=== PATIENT | female | born 1995 | race Caucasian/White ===

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

== ENCOUNTER 2017-08-01 20:26 | Inpatient (IN) | payer OTHER, MEDICAID ==
[2017-08-01] MEDS ORDERED: RINGERS SOLUTION,LACTATED 500 ML IV PRN (21:04)
[2017-08-01] MEDS ORDERED: ONDANSETRON HCL INJ/PF 4 MG/2 ML SDV ONE ×2 (21:09→22:26)
[2017-08-01 21:11] LABS: APPEARANCE,URINE CLEAR; BILIRUBIN,URINE NEGATIVE (NEGATIVE); COLOR,URINE STRAW; GLUCOSE, URINE NEGATIVE (NEGATIVE); KETONES,URINE NEGATIVE (NEGATIVE); LEUKOCYTE ESTERASE,URINE SMALL (NEGATIVE); NITRITE,URINE NEGATIVE (NEGATIVE); PROTEIN,URINE NEGATIVE (NEGATIVE); URINE SPECIFIC GRAVITY 1.003; UROBILINOGEN,URINE NEGATIVE mg/dL (<2.0)
[2017-08-01] MEDS: RINGERS SOLUTION,LACTATED 1,000 ML IV PRN ×2 (21:22→22:40)
[2017-08-01] MEDS: ONDANSETRON HCL INJ/PF 4 MG/2 ML SDV IV PRN (21:22)
[2017-08-01 21:29] LABS: URINE AMPHETAMINES SCREEN NEGATIVE; URINE BARBITURATES SCREEN NEGATIVE; URINE BENZODIAZEPINES SCREEN NEGATIVE; URINE COCAINE SCREEN NEGATIVE; URINE MARIJUANA (THC) SCREEN NEGATIVE; URINE METHADONE SCREEN NEGATIVE; URINE PHENCYCLIDINE SCREEN NEGATIVE
[2017-08-01] MEDS ORDERED: DEXTROSE 40% GEL 15 GM TUBE PO PRN ×2 (21:40)
[2017-08-01] MEDS ORDERED: DEXTROSE 50%-WATER 25 GM/50 ML DISP.SYRIN IV PRN ×2 (21:40)
[2017-08-01] MEDS ORDERED: GLUCAGON,HUMAN RECOMB 1 MG INJ SUBCUT PRN (21:40)
[2017-08-01] MEDS ORDERED: CITRIC ACID/SODIUM CITRATE ORAL SOLN 15 ML UDCUP PO ONE (21:40)
[2017-08-01] MEDS ORDERED: CITRIC ACID/SODIUM CITRATE ORAL SOLN 15 ML UDCUP ONE (21:41)
[2017-08-01 21:44] LABS: HEMATOCRIT 26.3 % (36.0-47.0); HEMOGLOBIN 8.8 g/dL (12.0-15.5); MEAN CORPUSCULAR HEMOGLOBIN 29.7 pg (27.0-33.4); MEAN CORPUSCULAR HGB CONC 33.7 g/dL (32.0-36.0); MEAN CORPUSCULAR VOLUME 88 fl (80-97); PLATELET COUNT 220 10^3/uL (150-450); RED BLOOD COUNT 2.97 10^6/uL (3.72-5.28); RED CELL DISTRIBUTION WIDTH 14.4 % (11.5-14.0); WHITE BLOOD COUNT 12.6 10^3/uL (4.0-10.5)
[2017-08-01 21:52] LABS: ALANINE AMINOTRANSFERASE 18 U/L (9-52); ALBUMIN 3.3 g/dL (3.5-5.0); ALKALINE PHOSPHATASE 130 U/L (38-126); AMYLASE 69 U/L (30-110); ANION GAP 10 (5-19); ASPARTATE AMINO TRANSFERASE 13 U/L (14-36); BILIRUBIN,DIRECT 0.1 mg/dL (0.0-0.4); BILIRUBIN,TOTAL 0.3 mg/dL (0.2-1.3); CALCIUM 10.4 mg/dL (8.4-10.2); CARBON DIOXIDE 21 mmol/L (22-30); CHLORIDE 107 mmol/L (98-107); GLUCOSE 83 mg/dL (75-110); LIPASE 41.1 U/L (23-300); SODIUM 137.8 mmol/L (137-145); TOTAL PROTEIN 5.9 g/dL (6.3-8.2)
[2017-08-01 21:55] LABS: BLOOD UREA NITROGEN < 2 mg/dL (7-20)
[2017-08-01 21:56] LABS: POTASSIUM 2.8 mmol/L (3.6-5.0); URIC ACID 4.9 mg/dL (2.5-6.2)
[2017-08-01] MEDS ORDERED: POTASSI CL 20 MEQ/50 ML RIDER 20 MEQ/50 ML RTUPB IV ONE (21:57)
[2017-08-01 22:11] LABS: UR PRO/CREAT RATIO RESULT 0.4 mg/mg (0.0-0.2); URINE CREATININE 58.4 mg/dL (16-327); URINE PROTEIN 21.2 mg/dL (<12)
[2017-08-01 22:18] LABS: ABSOLUTE LYMPHOCYTES# (MANUAL) 1.9 10^3/uL (0.5-4.7); ABSOLUTE MONOCYTES # (MANUAL) 0.5 10^3/uL (0.1-1.4); ABSOLUTE NEUTROPHILS# (MANUAL) 10.1 10^3/uL (1.7-8.2); BAND NEUTROPHILS % (MANUAL) 5 % (3-5); BASOPHILS % (MANUAL) 0 % (0-2); EOSINOPHILS % (MANUAL) 1 % (0-6); LYMPHOCYTES % (MANUAL) 15 % (13-45); MONOCYTES % (MANUAL) 4 % (3-13); SEGMENTED NEUTROPHILS % (MAN) 75 % (42-78); TOTAL CELLS COUNTED 100
[2017-08-01 22:20] LABS: ANISOCYTOSIS SLIGHT; PLATELET COMMENT ADEQUATE; POLYCHROMASIA SLIGHT
[2017-08-01] MEDS ORDERED: NALBUPHINE HCL INJ 10 MG/1 ML AMPULE INJ ONE (22:25)
[2017-08-01] MEDS ORDERED: ONDANSETRON HCL INJ/PF 4 MG/2 ML SDV IV ONE (22:25)
--- NOTE | 2017-08-01 22:40 | RADIOLOGY REPORT (SQ) ---
EXAM DESCRIPTION: U/S ABDOMEN COMPLETE W/DOPPLER COMPLETED DATE/TIME: 08/01/2017 10:16 pm REASON FOR STUDY: Left CVAT, Right flank, r/o sylvia/lakia as well COMPARISON: None. TECHNIQUE: Dynamic and static grayscale images acquired of the abdomen and recorded on PACS. Additio nal selected color Doppler and spectral images recorded. LIMITATIONS: Patient is 35 weeks , midline bowel gas FINDINGS: PANCREAS: Not well seen LIVER: No masses. Echotexture normal. LIVER VASCULATURE: Normal directional flow of the main portal vein and hepatic veins. GALLBLADDER: No stones. Normal wall thickness. No pericholecystic fluid. ULTRASOUND-DETECTED MOON'S SIGN: Negative. INTRAHEPATIC DUCTS AND COMMON DUCT: CBD and intrahepatic ducts normal caliber. No filling defects. INFERIOR VENA CAVA: Normal flow. AORTA: No aneurysm. RIGHT KIDNEY: Normal size. Normal echogenicity. No solid or suspicious masses. There is mild d ilatation of the right renal pelvis 1 cm in greatest AP diameter. This is within normal range for th e patient's gestational status. No intrarenal calcifications. LEFT KIDNEY: Normal size. Normal echogenicity. No solid or suspicious masses. No hydronephrosi s. No calcifications. SPLEEN: Normal size. No solid masses. PERITONEAL AND PLEURAL SPACES: No ascites or effusions. OTHER: No other significant finding. IMPRESSION: No gallstones, gallbladder wall thickening or pericholecystic fluid. Mild hydronephrosis of right kidney, within expected range for 35 weeks gestational age TECHNICAL DOCUMENTATION: JOB ID: [id number] [employer]- All Rights Reserved
[2017-08-01] MEDS ORDERED: CEFTRIAXONE INJ 1000 MG VIAL ONE (22:49)
[2017-08-01] MEDS ORDERED: CEFTRIAXONE 1 GM/D5W RTU 1 GM/50 ML RTUPB IV ONE (22:51)
[2017-08-01] MEDS ORDERED: NALBUPHINE HCL INJ 10 MG/1 ML AMPULE ONE (23:20)
[2017-08-01] MEDS ORDERED: CEFOXITIN INJ 1 GM VIAL ONE (23:29)
[2017-08-01] MEDS ORDERED: CEFOXITIN 1 GM/D5W RTU 1 GM/50 ML RTUPB IV ONE (23:30)
[2017-08-02] MEDS ORDERED: DIPHENHYDRAMINE HCL 50 MG/ML VIAL ONE ×2 (00:09→04:45)
[2017-08-02] MEDS ORDERED: POTASSI CL 20 MEQ/50 ML RIDER 20 MEQ/50 ML RTUPB IV ONE (00:59)
[2017-08-02] MEDS ORDERED: ACETAMINOPHEN WITH CODEINE #3 TABLET PO ONE (02:12)
[2017-08-02] MEDS ORDERED: ONDANSETRON HCL INJ/PF 4 MG/2 ML SDV ONE ×2 (02:16→07:22)
[2017-08-02] MEDS ORDERED: ACETAMINOPHEN WITH CODEINE #3 TABLET ONE ×3 (02:16→15:37)
[2017-08-02] MEDS: ONDANSETRON HCL INJ/PF 4 MG/2 ML SDV IV PRN (02:29)
[2017-08-02] MEDS ORDERED: METOPROLOL SUCCINATE 25 MG TAB.SR.24H PO ONE (02:42)
[2017-08-02] MEDS ORDERED: FENTANYL CITRATE INJ/PF 100 MCG/2 ML AMPUL IV ONE (03:44)
[2017-08-02] MEDS ORDERED: DIPHENHYDRAMINE HCL 50 MG/ML VIAL IV ONE ×2 (03:44)
[2017-08-02] MEDS ORDERED: FENTANYL CITRATE INJ/PF 100 MCG/2 ML AMPUL ONE (03:46)
[2017-08-02] MEDS ORDERED: CEFOXITIN 1 GM/D5W RTU 1 GM/50 ML RTUPB IV SCH ×3 (06:00→16:00)
[2017-08-02] MEDS ORDERED: ONDANSETRON HCL INJ/PF 4 MG/2 ML SDV IV PRN (07:30)
--- NOTE | 2017-08-02 08:06 | L&D Progress Notes ---
PROGRESS NOTES Datetime Report Generated by CPN: 08/02/2017 08:05 PROGRESS NOTE Informed Consent Obtained: Risks, Benefits and Alternatives Discussed Comment: In MRI, hsb in room, hsb discussing her pain last night and she had a hx of kidney stones and this does not feel like it VAGINAL EXAM Dilatation: 2 Effacement: 75 Station: -2 Contractions: none MEMBRANES Membranes: Intact FETUS A Presentation: Vertex SIGNATURE SIGNATURE: [id number] Assignment: Analilia Gomez MD Signature: with User ID: Ellis : with User ID: Ellis
[2017-08-02 08:07] LABS: HEMATOCRIT 22.4 % (36.0-47.0); MEAN CORPUSCULAR HEMOGLOBIN 29.9 pg (27.0-33.4); MEAN CORPUSCULAR HGB CONC 33.9 g/dL (32.0-36.0); MEAN CORPUSCULAR VOLUME 88 fl (80-97); PLATELET COUNT 203 10^3/uL (150-450); RED BLOOD COUNT 2.54 10^6/uL (3.72-5.28); RED CELL DISTRIBUTION WIDTH 14.1 % (11.5-14.0)
[2017-08-02 08:14] LABS: HEMOGLOBIN 7.6 g/dL (12.0-15.5)
[2017-08-02] MEDS ORDERED: CEFOXITIN 1 GM/D5W RTU 1 GM/50 ML RTUPB IV ONE (08:15)
[2017-08-02 08:21] LABS: ALANINE AMINOTRANSFERASE 19 U/L (9-52); ALBUMIN 2.7 g/dL (3.5-5.0); ALKALINE PHOSPHATASE 112 U/L (38-126); ANION GAP 8 (5-19); ASPARTATE AMINO TRANSFERASE 13 U/L (14-36); BILIRUBIN,DIRECT 0.2 mg/dL (0.0-0.4); BILIRUBIN,TOTAL 0.2 mg/dL (0.2-1.3); CALCIUM 8.7 mg/dL (8.4-10.2); CARBON DIOXIDE 24 mmol/L (22-30); CHLORIDE 107 mmol/L (98-107); GLUCOSE 68 mg/dL (75-110); SODIUM 138.6 mmol/L (137-145)
[2017-08-02 08:25] LABS: BLOOD UREA NITROGEN < 2 mg/dL (7-20)
[2017-08-02 08:26] LABS: POTASSIUM 2.9 mmol/L (3.6-5.0)
[2017-08-02 08:38] LABS: ABSOLUTE LYMPHOCYTES# (MANUAL) 1.6 10^3/uL (0.5-4.7); ABSOLUTE MONOCYTES # (MANUAL) 0.6 10^3/uL (0.1-1.4); ABSOLUTE NEUTROPHILS# (MANUAL) 9.6 10^3/uL (1.7-8.2); BAND NEUTROPHILS % (MANUAL) 1 % (3-5); BASOPHILS % (MANUAL) 0 % (0-2); EOSINOPHILS % (MANUAL) 2 % (0-6); LYMPHOCYTES % (MANUAL) 13 % (13-45); MONOCYTES % (MANUAL) 5 % (3-13); SEGMENTED NEUTROPHILS % (MAN) 79 % (42-78); TOTAL CELLS COUNTED 100
[2017-08-02 08:41] LABS: ANISOCYTOSIS SLIGHT; OVALOCYTES SLIGHT; PLATELET COMMENT ADEQUATE; POIKILOCYTOSIS SLIGHT; ROULEAUX 1+
--- NOTE | 2017-08-02 08:46 | RADIOLOGY REPORT (SQ) ---
EXAM DESCRIPTION: MRI ABDOMEN WITHOUT COMPLETED DATE/TIME: 08/02/2017 8:10 am REASON FOR STUDY: elevated WBC, 35wks, Right mid abd pain, r/o appy COMPARISON: Ultrasound abdomen complete 08/01/2017 TECHNIQUE: Axial STIR, axial T2, axial T1, coronal stir, coronal T2 fat sat, coronal T1 images saved to pac's. Patient is 35 weeks . LIMITATIONS: None. FINDINGS: Upper abdominal structures are unremarkable. Liver gallbladder common duct pancreas and s pleen, bilateral adrenal glands are unremarkable. There is normal flow identified in the portal vein splenic vein abdominal aorta and major visceral br anches. On the right side, mild to moderate hydronephrosis and upper hydroureter is present, best shown on co rebeca image 23 and axial images 1 through 20. No left hydronephrosis. Appendix not identified. No free cul-de-sac fluid. Gravid uterus, placenta maternal right without abruption or previa. Limited view of the anatom y is unremarkable. Adequate amniotic fluid. Maternal spine and retroperitoneal structures otherwise unremarkable. Results discussed with Dr. Pinto IMPRESSION: Right-sided mild to moderate hydronephrosis No gallstones or common duct stones. No biliary ductal dilatation Appendix not identified. No right pericolic gutter fluid or free pelvic fluid. TECHNICAL DOCUMENTATION: JOB ID: [id number] [employer]- All Rights Reserved
[2017-08-02 08:51] LABS: AMNISURE (ROM) POSITIVE (NEGATIVE)
--- NOTE | 2017-08-02 08:53 | EKG REPORT ---
SEVERITY:- OTHERWISE NORMAL ECG - SINUS TACHYCARDIA NONSPECIFIC ST-T CHANGES LATERAL LEADS : Confirmed by: Reji Yun 02-Aug-2017 08:53:32
[2017-08-02] MEDS ORDERED: ACETAMINOPHEN WITH CODEINE #3 TABLET PO PRN (09:19)
[2017-08-02 10:14] LABS: AMNISURE (ROM) NEGATIVE (NEGATIVE)
[2017-08-02] MEDS: ACETAMINOPHEN WITH CODEINE #3 TABLET PO PRN ×2 (10:25→15:39)
--- NOTE | 2017-08-02 10:34 | RADIOLOGY REPORT (SQ) ---
EXAM DESCRIPTION: U/S OB LIMITED COMPLETED DATE/TIME: 08/02/2017 10:21 am REASON FOR STUDY: FELIX, Single deepest pocket, presentation COMPARISON: MRI abdomen 08/02/2017 Abdominal ultrasound 08/01/2017 OB ultrasound 12/30/2016 TECHNIQUE: Limited transabdominal grayscale ultrasound for evaluation of specific requested obstetri bindu parameters. LIMITATIONS: None. FINDINGS: CERVICAL LENGTH: Not evaluated FELIX: 10.2 cm. FHR: 144 beats per minute. PRESENTATION: Cephalic. OTHER: Placenta grade 2 maternal right IMPRESSION: FELIX 10.2 cm Trimester of : Third trimester - 28 weeks to delivery. TECHNICAL DOCUMENTATION: JOB ID: [id number] [employer]- All Rights Reserved
[2017-08-02] MEDS: POTASSI CL 20 MEQ/50 ML RIDER 20 MEQ/50 ML RTUPB IV SCH ×2 (11:01→12:51)
[2017-08-02] MEDS ORDERED: HYDROXYZINE PAMOATE 50 MG CAPSULE ONE (15:36)
[2017-08-02] MEDS ORDERED: HYDROXYZINE PAMOATE 50 MG CAPSULE PO ONE (16:00)
--- NOTE | 2017-08-04 10:15 | Admission Physical ---
Datetime Report Generated by CPN: 08/04/2017 10:14 CURRENT ADMISSION Hx Assessment: The History has been Reviewed and is Current Chief Complaint: Other Chief Complaint Other: N/V, abd and flank pain, tachy cardia, tachypnea Indication for Induction: Not Applicable Indication for Induction: , Intrauterine ; No Active Labor; Intact Membranes; Observation/Evaluation; Medical Complication Admit Plan: Admit to Unit; Observation/Evaluation ALLERGIES Medication Allergies: Yes Medication Allergies: amoxicillin/Skin Redness (08/01/2017) Medication Allergies: amoxicillin/Skin Redness (12/29/2016) Latex: No Latex Allergies Food Allergies: denies Environmental Allergies: denies OBSTETRICAL HISTORY EDC: 09/02/2017 00:00 : 1 Para: 0 Term: 0 : 0 SAB: 0 IAB: 0 Livin Gestational Diabetes: No Rh Sensitization: No Incompetent Cervix: No CORA: No Infertility: No ART Treatment: No Uterine Anomaly: No IUGR: No Hx Previous C/S: No Macrosomia: No Hx Loss/Stillborn: No PIH: No Hx : No Placenta Previa/Abruption: No Depression/PP Depression: No PTL/PROM: No Post Hemorrhage: No Current Procedures: Ultrasound; NST Obstetrical History Comments: g1-current , 23 OBS for RLQ pain SEE RECORDS Alcohol: No Marijuana : No Cocaine: No Other Illicit Drugs: No Cigarettes: Never Smoker. [id number] MEDICAL HISTORY Diabetes: No Blood Transfusion: No Pulmonary Disease (Asthma, TB): No Breast Disease: No Hypertension: No Rn Supplemental Surgery: Yes Heart Disease: No Hosp/Surgery: Yes Autoimmune Disorder: No Anesthetic Complications: No Kidney Disease: Yes Abnormal Pap Smear: No Neuro/Epilepsy: No Psychiatric Disorders: No Other Medical Diseases: Yes Hepatitis/Liver Disease: No Significant Family History: No Varicosities/Phlebitis: No Trauma/Violence : No Thyroid Dysfunction: No Medical History Comments: kidney stones, uti x 2, lap early in to rule out ectopic, anemia, plastic surgeon on face, tonsilectomy, wisdom teeth removed, cyst removed from right nostril, kidney stone removal, MRSA on back of left leg but was swabbed in 2017 and no signs INFECTIOUS HISTORY Gonorrhea: No Genital Herpes: No Chlamydia: No Tuberculosis: No Syphilis: No Hepatitis: No HIV/AIDS Exposure: No Rash or Viral Illness: No HPV: No PHYSICAL EXAM General: Normal HEENT: Normal Neurologic: Normal Thyroid: Deferred Heart: Abnormal Lungs: Abnormal Breast: Deferred Back: Abnormal Abdomen: Abnormal Genitourinary Exam: Normal Extremities: Normal DTRs: Normal Pelvic Type: Adequate Physical Exam Comments: Tachycardic, Reg Rhythm, difficult to discern if murmur CTAB with increased RR at 35 Left CVAT, Right mid abdomen pain (even to umbilicus), no rebound but guarding noted uterus does not appear to be ttp except on right. Cap refill less than 3 sec Vital Signs: Reviewed VAGINAL EXAM Dilatation: 2 Effacement: 75 Station: -2 Contraction Comments: none MEMBRANES Membranes: Intact FETUS A EGA: 35.3 Monitoring: External US FHR- Baseline: 125 Variability: Moderate 6-25bpm Accelerations: 15X15 Decelerations: None FHR Category: Category I Presentation: Vertex Admit Comment: 22yo at 35+3ega presents with Left CVAT, tachypnea, tachycardia, n/v/d, Right mid abdomen pain. 100% O2 sats on RA. Labs remarkable for elevated WBC. US of abd done - right hydro normal for , normal left renal area (no abscess), normal gallbladder, unable to visualize appendix. Urine unremarkable. urine culture and blood cultures done. lactic acid done - normal. Spoke with Dr. Bolden (Gen Surg) - recommended MRI to r/o appendicitis due to WBC, patient presentation, and location of pain. Cvx also noted to be 2cm dilated but no ctx noted initially on monitor until patient returned from US. Rocephin 1gram given. IVF given. Will admit for observation to determine diagnosis. PLANS FOR LABOR AND DELIVERY Labor and Delivery: None Pain Management: Natural Feeding Preference: Breast Benefit of Breast Feed Discussed: Yes Circumcision: N/A INFORMED CONSENT Informed Consent Obtained: Risks, Benefits and Alternatives Discussed Signature: with User ID: [email or web address]
--- NOTE | 2017-08-15 21:44 | PDOC DISCHARGE SUMMARY ---
General - Admit/Disc Date/PCP Admission Date/Primary Care Provider: 08/01/17 21:46 Discharge Date: 08/02/17 - Discharge Diagnosis (1) Anemia affecting Is this a current diagnosis for this admission?: Yes (2) Hypopotassemia Is this a current diagnosis for this admission?: Yes (3) Tachycardia Is this a current diagnosis for this admission?: Yes - Additional Information Home Medications: Pnv No.95/Ferrous Fum/Folic AC [ Vitamins Tablet] 1 tab PO DAILY History of Present Illness History of Present Illness: JACQUES BROCK is a 22 year old female Hospital Course Hospital Course: underwent evaluation for pelvic pain and upper right quandrant abdominal pain. All imaging negative. K+ replaced. Physical Exam - Physical Exam General appearance: PRESENT: no acute distress, cooperative - Obstetrical Exam External Genitalia: normal Vagina: normal Dilation (cm): 0 Effacement (%): 25 Station: -4 Fundal Height: 3/u - 4/u Tender: No Adhexa: normal Result Laboratory Results: 08/02/17 07:12 08/02/17 17:00 Impressions: Abdomen Ultrasound 08/01/17 21:21 IMPRESSION: No gallstones, gallbladder wall thickening or pericholecystic fluid. Mild hydronephrosis of right kidney, within expected range for 35 weeks gestational age Abdomen MRI 08/01/17 22:42 IMPRESSION: Right-sided mild to moderate hydronephrosis No gallstones or common duct stones. No biliary ductal dilatation Appendix not identified. No right pericolic gutter fluid or free pelvic fluid. Obstetrics Ultrasound 08/02/17 08:55 IMPRESSION: FELIX 10.2 cm Trimester of : Third trimester - 28 weeks to delivery. Plan Discharge Plan: discharged home with precautions for K+ supplementation, tylenol for discomfort and instructions to keep appt at [facility]. Time Spent: Greater than 30 Minutes
== END 2017-08-02 17:55 | disposition home or self-care (01) | DRG 781 ==
LOC: LC 20:26 → LR 21:46 → OBSVTOIN 21:46
PROVIDERS: ADMIT Student in an Organized Health Care Education/Training Program; ATTEND Student in an Organized Health Care Education/Training Program
PROC: 4A1HXCZ Monitoring of Products of Conception, Cardiac Rate, External Approach (ICD-10-PCS; principal; 2017-08-01)
DX: O99.283 Endocrine, nutritional and metabolic diseases complicating pregnancy, third trimester (principal); E87.6 Hypokalemia; O26.893 Other specified pregnancy related conditions, third trimester; R10.9 Unspecified abdominal pain; O99.013 Anemia complicating pregnancy, third trimester; O99.89 Other specified diseases and conditions complicating pregnancy, childbirth and the puerperium; R00.0 Tachycardia, unspecified; D64.9 Anemia, unspecified; Z3A.35 35 weeks gestation of pregnancy; Z86.14 Personal history of Methicillin resistant Staphylococcus aureus infection
CPT/HCPCS: 36415; 59025; 74181; 76700; 76815; 80053; 80307; 81001; 82150; 82570; 83605; 83615; 83690; 84112; 84132; 84156; 84550; 85025; 87040; 87081; 87086; 93005; 93010; 93976; 94760; G0378; G0379; J0694; J0696; J1200; J2300; J2405; J3010; J3480; J3490; Q0114

== ENCOUNTER 2017-08-08 22:10 | Outpatient (CLI) | payer OTHER, MEDICAID ==
--- NOTE | 2017-08-08 22:17 | Non Stress Test Report ---
Non Stress Test Datetime Report Generated by CPN: 08/08/2017 22:16 DEMOGRAPHIC EGA NST: 35.4 INDICATION Indication for Study: Ordered by Provider MONITORING Monitor Explained: Monitor Explained; Test Explained Time on Monitor: 08/02/2017 11:44 Time off Monitor: 08/02/2017 12:10 NST Duration: 26 NST INTERVENTIONS NST Interventions: PO Hydration; Meal Given; Reposition Patient Physician Notified NST: Dr. Jason BABY A: [id number] BABY A Movement : Present Contraction Frequency : None FHR Baseline : 125 Accelerations : 15X15 Decelerations : None Variability : Moderate 6-25bpm NST Review: Meets Criteria for Reactive NST NST Review and Verified By : Shraddha De La Vega RNC NST Results: Reactive NST REPORT Report Trigger: Send Report
[2017-08-08 23:03] LABS: APPEARANCE,URINE CLEAR; BILIRUBIN,URINE NEGATIVE (NEGATIVE); COLOR,URINE STRAW; GLUCOSE, URINE NEGATIVE (NEGATIVE); KETONES,URINE NEGATIVE (NEGATIVE); LEUKOCYTE ESTERASE,URINE SMALL (NEGATIVE); NITRITE,URINE NEGATIVE (NEGATIVE); PROTEIN,URINE NEGATIVE (NEGATIVE); URINE SPECIFIC GRAVITY 1.003; UROBILINOGEN,URINE NEGATIVE mg/dL (<2.0)
[2017-08-08 23:11] LABS: URINE AMPHETAMINES SCREEN NEGATIVE; URINE BARBITURATES SCREEN NEGATIVE; URINE BENZODIAZEPINES SCREEN NEGATIVE; URINE COCAINE SCREEN NEGATIVE; URINE MARIJUANA (THC) SCREEN NEGATIVE; URINE METHADONE SCREEN NEGATIVE; URINE PHENCYCLIDINE SCREEN NEGATIVE
[2017-08-08] MEDS ORDERED: HYDROXYZINE PAMOATE 50 MG CAPSULE PO ONE (23:37)
[2017-08-08] MEDS ORDERED: HYDROXYZINE PAMOATE 50 MG CAPSULE ONE (23:55)
== END 2017-08-09 00:04 | disposition home or self-care (01) ==
LOC: LC 22:10
PROVIDERS: ATTEND Obstetrics & Gynecology Gynecology
PROC: 4A1HXCZ Monitoring of Products of Conception, Cardiac Rate, External Approach (ICD-10-PCS; principal; 2017-08-08)
DX: O36.8130 Decreased fetal movements, third trimester, not applicable or unspecified (principal); Z3A.36 36 weeks gestation of pregnancy
CPT/HCPCS: 59025; 80307; 81001

== ENCOUNTER 2017-08-24 19:15 | Inpatient (IN) | payer OTHER, MEDICAID ==
--- NOTE | 2017-08-24 19:30 | Non Stress Test Report ---
Non Stress Test Datetime Report Generated by CPN: 08/24/2017 19:30 DEMOGRAPHIC EGA NST: 36.4 INDICATION Indication for Study: Ordered by Provider MONITORING Monitor Explained: Monitor Explained; Test Explained; Patient Verbalized Understanding Time on Monitor: 08/09/2017 22:26 Time off Monitor: 08/09/2017 23:52 NST Duration: 86 NST INTERVENTIONS NST Interventions: PO Hydration Physician Notified NST: Dr. Lazo BABY A: [id number] BABY A Movement : Present Contraction Frequency : irritability FHR Baseline : 135 Accelerations : 15X15 Decelerations : None Variability : Moderate 6-25bpm NST Review: Meets Criteria for Reactive NST NST Review and Verified By : carolina KIM Results: Reactive NST REPORT Report Trigger: Send Report
[2017-08-24 19:58] LABS: APPEARANCE,URINE SLIGHTLY-CLOUDY; BILIRUBIN,URINE NEGATIVE (NEGATIVE); COLOR,URINE STRAW; GLUCOSE, URINE NEGATIVE (NEGATIVE); KETONES,URINE NEGATIVE (NEGATIVE); LEUKOCYTE ESTERASE,URINE LARGE (NEGATIVE); NITRITE,URINE NEGATIVE (NEGATIVE); PROTEIN,URINE NEGATIVE (NEGATIVE); URINE SPECIFIC GRAVITY 1.001; UROBILINOGEN,URINE NEGATIVE mg/dL (<2.0)
[2017-08-24] MEDS ORDERED: LIDOCAINE 1% INJ-PF (10 MG/ML) 30 ML SDV INJ ONE (20:18)
[2017-08-24 20:20] LABS: URINE AMPHETAMINES SCREEN NEGATIVE; URINE BARBITURATES SCREEN NEGATIVE; URINE BENZODIAZEPINES SCREEN NEGATIVE; URINE COCAINE SCREEN NEGATIVE; URINE MARIJUANA (THC) SCREEN NEGATIVE; URINE METHADONE SCREEN NEGATIVE; URINE PHENCYCLIDINE SCREEN NEGATIVE
[2017-08-24] MEDS ORDERED: LIDOCAINE 1% INJ-PF (10 MG/ML) 30 ML SDV ONE ×2 (20:26→22:10)
[2017-08-24] MEDS ORDERED: CEFTRIAXONE INJ 1000 MG VIAL ONE (20:26)
[2017-08-24] MEDS ORDERED: CEFTRIAXONE INJ 1000 MG VIAL IM ONE (20:30)
[2017-08-24 20:46] LABS: HEMATOCRIT 27.7 % (36.0-47.0); HEMOGLOBIN 9.5 g/dL (12.0-15.5); MEAN CORPUSCULAR HEMOGLOBIN 29.2 pg (27.0-33.4); MEAN CORPUSCULAR HGB CONC 34.3 g/dL (32.0-36.0); MEAN CORPUSCULAR VOLUME 85 fl (80-97); PLATELET COUNT 339 10^3/uL (150-450); RED BLOOD COUNT 3.25 10^6/uL (3.72-5.28); RED CELL DISTRIBUTION WIDTH 14.4 % (11.5-14.0); WHITE BLOOD COUNT 13.4 10^3/uL (4.0-10.5)
[2017-08-24 21:05] LABS: ABSOLUTE LYMPHOCYTES# (MANUAL) 3.2 10^3/uL (0.5-4.7); ABSOLUTE MONOCYTES # (MANUAL) 1.2 10^3/uL (0.1-1.4); ABSOLUTE NEUTROPHILS# (MANUAL) 8.2 10^3/uL (1.7-8.2); BAND NEUTROPHILS % (MANUAL) 2 % (3-5); BASOPHILS % (MANUAL) 0 % (0-2); EOSINOPHILS % (MANUAL) 6 % (0-6); LYMPHOCYTES % (MANUAL) 24 % (13-45); MONOCYTES % (MANUAL) 9 % (3-13); SEGMENTED NEUTROPHILS % (MAN) 59 % (42-78); TOTAL CELLS COUNTED 100
[2017-08-24 21:06] LABS: ANISOCYTOSIS SLIGHT; PLATELET COMMENT ADEQUATE; TOXIC GRANULATION SLIGHT
[2017-08-24 21:07] LABS: ALANINE AMINOTRANSFERASE 20 U/L (9-52); ALBUMIN 3.3 g/dL (3.5-5.0); ALKALINE PHOSPHATASE 179 U/L (38-126); ANION GAP 10 (5-19); ASPARTATE AMINO TRANSFERASE 20 U/L (14-36); BILIRUBIN,DIRECT 0.3 mg/dL (0.0-0.4); BILIRUBIN,TOTAL 0.3 mg/dL (0.2-1.3); BLOOD UREA NITROGEN 4 mg/dL (7-20); CARBON DIOXIDE 24 mmol/L (22-30); CHLORIDE 104 mmol/L (98-107); GLUCOSE 83 mg/dL (75-110); LDH 529 U/L (313-618); SODIUM 138.1 mmol/L (137-145); URIC ACID 7.4 mg/dL (2.5-6.2)
[2017-08-24 21:31] LABS: CALCIUM 12.4 mg/dL (8.4-10.2); POTASSIUM 2.9 mmol/L (3.6-5.0)
[2017-08-24 22:01] LABS: UR PRO/CREAT RATIO RESULT 0.7 mg/mg (0.0-0.2); URINE PROTEIN 19.6 mg/dL (<12)
[2017-08-24] MEDS ORDERED: RINGERS SOLUTION,LACTATED 1,000 ML IV PRN (22:04)
[2017-08-24] MEDS ORDERED: MISOPROSTOL 0.2 MG TABLET ONE (22:10)
[2017-08-24] MEDS ORDERED: OXYTOCIN/NORMAL SALINE 20 UNIT/1,000 ML RTUINJ ONE (22:10)
[2017-08-24] MEDS ORDERED: POTASSI CL 20 MEQ/50 ML RIDER 40 MEQ/100 ML RTUPB IV ONE (22:22)
[2017-08-24] MEDS ORDERED: ONDANSETRON HCL INJ/PF 4 MG/2 ML SDV ONE (22:37)
[2017-08-25] MEDS ORDERED: FENTANYL/BUPIVACAINE/NS/PF 200 MCG/100 ML RTUINJ EPI ONE (00:03)
[2017-08-25] MEDS ORDERED: BUPIVACAINE HCL 0.25 % INJ/PF (2.5 MG/1 ML) 30 ML VIAL ONE (00:03)
[2017-08-25] MEDS ORDERED: EPHEDRINE SULFATE INJ 50 MG/1 ML AMPULE ONE (00:03)
[2017-08-25] MEDS ORDERED: ONDANSETRON HCL INJ/PF 4 MG/2 ML SDV ONE (01:56)
[2017-08-25] MEDS ORDERED: POTASSI CL 20 MEQ/50 ML RIDER 20 MEQ/50 ML RTUPB IV ONE (02:26)
[2017-08-25] MEDS ORDERED: MAGNESIUM HYDROXIDE SUSP 30 ML UDCUP PO PRN (04:03)
[2017-08-25] MEDS ORDERED: PROMETHAZINE HCL 25 MG TABLET PO PRN (04:03)
[2017-08-25] MEDS ORDERED: BENZOCAINE/MENTHOL AEROSOL SPRAY 56 ML TOP PRN (04:03)
[2017-08-25] MEDS ORDERED: ZOLPIDEM TARTRATE 5 MG TABLET PO PRN (04:03)
[2017-08-25] MEDS ORDERED: PROMETHAZINE HCL INJ 25 MG/1 ML VIAL IV PRN (04:03)
[2017-08-25] MEDS ORDERED: NA PHOS,M-B/NA PHOS,DI-BA (ADULT) 133 ML ENEMA PR PRN (04:03)
[2017-08-25] MEDS ORDERED: GLYCERIN/WITCH HAZEL LEAF 1 EACH MED..PAD TP PRN (04:03)
[2017-08-25] MEDS ORDERED: MEASLES,MUMPS&RUBELLA VACC/PF 0.5 ML VIAL SUBCUT PRN (04:03)
[2017-08-25] MEDS ORDERED: ACETAMINOPHEN 650 MG SUPP.RECT PR PRN (04:03)
[2017-08-25] MEDS ORDERED: PROMETHAZINE HCL 25 MG SUPP.RECT PR PRN (04:03)
[2017-08-25] MEDS ORDERED: DIPHENHYDRAMINE HCL 25 MG CAPSULE PO PRN (04:03)
[2017-08-25] MEDS ORDERED: PSEUDOEPHEDRINE HCL 30 MG TABLET PO PRN (04:03)
[2017-08-25] MEDS ORDERED: DIBUCAINE 1% OINTMENT 28 GM TP PRN (04:03)
[2017-08-25] MEDS ORDERED: OXYTOCIN/NORMAL SALINE 20 UNIT/1,000 ML RTUINJ IV PRN (04:03)
[2017-08-25] MEDS ORDERED: DIPH/PERTUSS(ACELL)/TETANUS VAC/PF 0.5 ML SYR (>=10YO) IM PRN (04:03)
[2017-08-25] MEDS ORDERED: IBUPROFEN 800 MG TABLET ONE (06:09)
[2017-08-25] MEDS: IBUPROFEN 800 MG TABLET PO SCH ×3 (06:43→21:49)
[2017-08-25] MEDS ORDERED: SENNOSIDES/DOCUSATE 8.6-50 MG 1 EACH TABLET ONE (09:26)
[2017-08-25] MEDS ORDERED: DOCUSATE SODIUM 100 MG CAPSULE ONE (09:26)
[2017-08-25] MEDS ORDERED: FERROUS SULFATE 325 MG TABLET PO ONE (09:26)
[2017-08-25] MEDS ORDERED: FAMOTIDINE 20 MG TABLET ONE (09:26)
[2017-08-25] MEDS: SENNOSIDES/DOCUSATE 8.6-50 MG 1 EACH TABLET PO SCH (09:58)
[2017-08-25] MEDS: FERROUS SULFATE 325 MG TABLET PO SCH ×2 (09:59→21:04)
[2017-08-25] MEDS: FAMOTIDINE 20 MG TABLET PO SCH ×2 (09:59→21:49)
[2017-08-25] MEDS ORDERED: ACETAMINOPHEN WITH CODEINE #3 TABLET ONE (10:05)
[2017-08-25] MEDS ORDERED: PRENATAL VITAMIN W DHA CAPSULE PO ONE (10:07)
[2017-08-25] MEDS: DOCUSATE SODIUM 100 MG CAPSULE PO SCH ×2 (10:07→21:04)
[2017-08-25] MEDS: PRENATAL VITAMIN W DHA CAPSULE PO SCH (10:07)
[2017-08-25] MEDS: ACETAMINOPHEN WITH CODEINE #3 TABLET PO PRN ×3 (10:07→20:57)
--- NOTE | 2017-08-25 12:55 | Admission Physical ---
Datetime Report Generated by CPN: 08/25/2017 12:54 CURRENT ADMISSION Hx Assessment: The History has been Reviewed and is Current Chief Complaint: Uterine Contractions; Maternal Discomfort; Other Chief Complaint: Other Chief Complaint Other: right side abdominal pain, nausea/vomiting Chief Complaint Other: N/V, abd and flank pain, tachy cardia, tachypnea Indication for Induction: PreEclampsia Indication for Induction: Not Applicable Indication for Induction: Term, Intrauterine ; Induction of Labor Indication for Induction: , Intrauterine ; No Active Labor; Intact Membranes; Observation/Evaluation; Medical Complication Admit Plan: Admit to Unit; Initiate Labor Induction Protocol Admit Plan: Admit to Unit; Observation/Evaluation ALLERGIES Medication Allergies: Yes Medication Allergies: amoxicillin/Skin Redness (08/24/2017) Medication Allergies: amoxicillin/Skin Redness (08/08/2017) Medication Allergies: amoxicillin/Skin Redness (08/01/2017) Medication Allergies: amoxicillin/Skin Redness (12/29/2016) Latex: No Latex Allergies Food Allergies: denies Environmental Allergies: denies OBSTETRICAL HISTORY EDC: 09/02/2017 00:00 : 1 Para: 0 Term: 0 : 0 SAB: 0 IAB: 0 Ectopic: 0 Livin Cesareans: 0 VBACs: 0 Multiple Births: 0 Gestational Diabetes: No Rh Sensitization: No Incompetent Cervix: No CORA: No Infertility: No ART Treatment: No Uterine Anomaly: No IUGR: No Hx Previous C/S: No Macrosomia: No Hx Loss/Stillborn: No PIH: No Hx : No Placenta Previa/Abruption: No Depression/PP Depression: No PTL/PROM: No Post Hemorrhage: No Current Procedures: Ultrasound; NST Obstetrical History Comments: G1- current , 23 OBS for RLQ pain SEE RECORDS Alcohol: No Marijuana : No Cocaine: No Other Illicit Drugs: No Cigarettes: Never Smoker. [id number] MEDICAL HISTORY Diabetes: No Blood Transfusion: No Pulmonary Disease (Asthma, TB): No Breast Disease: No Hypertension: No Portal Administrator Surgery: Yes Heart Disease: No Hosp/Surgery: Yes Autoimmune Disorder: No Anesthetic Complications: No Kidney Disease: Yes Abnormal Pap Smear: No Neuro/Epilepsy: No Psychiatric Disorders: No Other Medical Diseases: Yes Hepatitis/Liver Disease: No Significant Family History: No Varicosities/Phlebitis: No Trauma/Violence : No Thyroid Dysfunction: No Medical History Comments: kidney stones, uti x 2, lap early in to rule out ectopic, anemia, plastic surgeon on face, tonsilectomy, wisdom teeth removed, cyst removed from right nostril, kidney stone removal, MRSA on back of left leg but was swabbed in 2017 and no signs INFECTIOUS HISTORY Gonorrhea: No Genital Herpes: No Chlamydia: No Tuberculosis: No Syphilis: No Hepatitis: No HIV/AIDS Exposure: No Rash or Viral Illness: No HPV: No PHYSICAL EXAM General: Normal General: Normal HEENT: Normal HEENT: Normal Neurologic: Normal Neurologic: Normal Thyroid: Normal Thyroid: Deferred Heart: Normal Heart: Abnormal Lungs: Normal Lungs: Abnormal Breast: Normal Breast: Deferred Back: Normal Back: Abnormal Abdomen: Normal Abdomen: Abnormal Genitourinary Exam: Normal Genitourinary Exam: Normal Extremities: Normal Extremities: Normal DTRs: Normal DTRs: Normal Pelvic Type: Adequate Pelvic Type: Adequate Physical Exam Comments: Tachycardic, Reg Rhythm, difficult to discern if murmur CTAB with increased RR at 35 Left CVAT, Right mid abdomen pain (even to umbilicus), no rebound but guarding noted uterus does not appear to be ttp except on right. Cap refill less than 3 sec Vital Signs: Reviewed Vital Signs: Reviewed Details Vital Signs: several elevated bps >140/90 VAGINAL EXAM Dilatation: 3 Dilatation: 2 Effacement: 80 Effacement: 75 Station: -1 Station: -2 Contraction Comments: none MEMBRANES Pooling: Negative Membranes: Intact Membranes: Intact FETUS A EGA: 38.5 EGA: 35.3 Monitoring: External US Monitoring: External US FHR- Baseline: 140 FHR- Baseline: 125 Variability: Moderate 6-25bpm Variability: Moderate 6-25bpm Accelerations: 15X15 Accelerations: 15X15 Decelerations: None Decelerations: None FHR Category: Category I FHR Category: Category I Estimated Weight (gm): 3400 Presentation: Vertex Presentation: Vertex Admit Comment: hypokalemia with K of 2.9 today c/w previous labs. Pt indicates seeing "spots" or "floaters" over the last week. d/w pt and regarding delivery for Pre E as uric acid has risen to 7.4. will induce with pitocin, when patient has epidural will Rupture membranes. Admit Comment: 22yo at 35+3ega presents with Left CVAT, tachypnea, tachycardia, n/v/d, Right mid abdomen pain. 100% O2 sats on RA. Labs remarkable for elevated WBC. US of abd done - right hydro normal for , normal left renal area (no abscess), normal gallbladder, unable to visualize appendix. Urine unremarkable. urine culture and blood cultures done. lactic acid done - normal. Spoke with Dr. Bolden (Gen Surg) - recommended MRI to r/o appendicitis due to WBC, patient presentation, and location of pain. Cvx also noted to be 2cm dilated but no ctx noted initially on monitor until patient returned from US. Rocephin 1gram given. IVF given. Will admit for observation to determine diagnosis. PLANS FOR LABOR AND DELIVERY Labor and Delivery: None Pain Management: Natural Feeding Preference: Breast Benefit of Breast Feed Discussed: Yes Circumcision: N/A INFORMED CONSENT Informed Consent Obtained: Risks, Benefits and Alternatives Discussed Signature: with User ID: Manuel Signature: with User ID: [email or web address] : with User ID: [email or web address]
[2017-08-26] MEDS: ACETAMINOPHEN WITH CODEINE #3 TABLET PO PRN ×4 (02:43→23:23)
[2017-08-26] MEDS: IBUPROFEN 800 MG TABLET PO SCH ×3 (06:35→21:50)
--- NOTE | 2017-08-26 06:41 | Delivery Summary ---
Del Sum A-C Datetime Report Generated by CPN: 08/26/2017 06:41 DELIVERY PERSONNEL DELIVERY PERSONNEL: [id number] Delivery Doctor:: Analilia Gomez MD Labor and Delivery Nurse:: Sherly Orellana RN Nursery Nurse:: Annie Lazo, RN Generation Manager/PARACHUTIST/COMBATANT DIVER QUALIFIED: Chastity Michaud, ST MATERNAL INFORMATION Delivery Anesthesia: Epidural Medications After Delivery: Pitocin Drip 20 Units/1000ml NSS Estimated Blood Loss (ml): 200 Maternal Complications: None LABOR SUMMARY EDC: 09/02/2017 00:00 No. Babies in Womb: 1 Attempted: No Labor Anesthesia: Epidural LABOR INFORMATION Reason for Induction: Pre-Eclampsia Onset of Labor: 08/25/2017 01:15 Complete Dilatation: 08/25/2017 02:59 Oxytocin: Induction Group B Beta Strep: Negative Antibiotics # of Doses: 0 Steroids Given: None Reason Steroids Not Administered: Not Applicable MEMBRANES Membranes Rupture Method: Artificial Rupture of Membranes: 08/25/2017 23:34 Length of Rupture (hr): -20.10 Amniotic Fluid Color: Clear Amniotic Fluid Amount: Moderate Amniotic Fluid Odor: Normal STAGES OF LABOR Stage 1 hr: 1 Stage 1 min: 44 Stage 2 hr: 0 Stage 2 min: 29 Stage 3 hr: 0 Stage 3 min: 5 Total Time in Labor hr: 2 Total Time in Labor min: 18 VAGINAL DELIVERY Episiotomy: None Laceration #1: Periurethral Laceration Extension #1: Second Degree Laceration #2: Periurethral Laceration Extension #2: First Degree Laceration Repair: Yes Laceration Repair Note: periuretheral/labial tears repaired with 3-0 chromic suture in usual fashion Sponge Count Correct: N/A CSECTION DELIVERY Primary Indication: N/A Secondary Indication: N/A CSection Incidence: N/A Labor: N/A Elective: N/A CSection Incision: N/A BABY A INFORMATION Delivery Date/Time: 08/25/2017 03:28 Method of Delivery: Vaginal Method of Delivery: Vaginal Born in Route : No : N/A Forceps: N/A Vacuum Extraction: Successful Shoulder Dystocia : No ASSISTED DELIVERY BABY A Indication for Assisted Delivery: NRFHT Position Vacuum/Forcep Apply: Left Occipital Anterior Vacuum Number of Pulls: 2 Vacuum Number of PopOffs: 0 Vacuum Maximum Pressure Obtained: 450 Reduce Pressure btwn Ctx: Yes Total Time Vacuum Applied: 1 minute PRESENTATION/POSITION BABY A Presentation: Cephalic Presentation: Cephalic Presentation: Cephalic Presentation: Cephalic Cephalic Presentation: Vertex Vertex Position: Left Occipital Anterior Breech Presentation: N/A PLACENTA INFORMATION BABY A Placenta Delivery Time : 08/25/2017 03:33 Placenta Method of Delivery: Spontaneous Placenta Method of Delivery: Spontaneous Placenta Status: Delivered SCORES BABY A Heart Rate 1 min: >100 bpm Resp Effort 1 min: Good Cry Reflex Irritability 1 min: Cough or Sneeze or Pulls Away Muscle Tone 1 min: Active Motion Color 1 min: Body [place], Extremities Blue SCORE 1 MIN: 9 Heart Rate 5 min: >100 bpm Resp Effort 5 min: Good Cry Reflex Irritability 5 min: Cough or Sneeze or Pulls Away Muscle Tone 5 min: Active Motion Color 5 min: Body [place], Extremities Blue SCORE 5 MIN: 9 INFORMATION BABY A Gestational Age at Delivery: 38.6 Gestational Status: Early Term- 37- 38.6 Weeks Infant Outcome : Liveborn Infant Condition : Stable Sex: Female IDENTIFICATION BABY A Infant Verification Date/Time: 08/25/2017 04:09 ID Band Number: [id number] Mother's Name Verified: Yes RN Verifying : E. Jilek/ S. Lattibeaudeir WEIGHT/LENGTH BABY A Infant Birthweight (gm): 3130 Infant Weight (lb): 6 Infant Weight (oz): 14 Infant Length (in): 19.00 Length (cm): 48.26 CORD INFORMATION BABY A No. Cord Vessels: 3 Nuchal Cord : N/A Cord Blood Taken: Yes-For Eval (Mom's Blood Type - or O+) Infant Suction: Mouth; Nose ASSESSMENT BABY A Skin to Skin: Yes Infant Care By: Annie Lazo, RN Transferred To: Remains with Mother BABY B INFORMATION : N/A SIGNATURES Signature: with User ID: Manuel
[2017-08-26 08:19] LABS: HEMATOCRIT 21.1 % (36.0-47.0); MEAN CORPUSCULAR HEMOGLOBIN 29.1 pg (27.0-33.4); MEAN CORPUSCULAR HGB CONC 33.7 g/dL (32.0-36.0); MEAN CORPUSCULAR VOLUME 86 fl (80-97); PLATELET COUNT 266 10^3/uL (150-450); RED BLOOD COUNT 2.44 10^6/uL (3.72-5.28); RED CELL DISTRIBUTION WIDTH 14.2 % (11.5-14.0); WHITE BLOOD COUNT 13.7 10^3/uL (4.0-10.5)
[2017-08-26 08:30] LABS: HEMOGLOBIN 7.1 g/dL (12.0-15.5)
[2017-08-26] MEDS: FAMOTIDINE 20 MG TABLET PO SCH ×2 (10:59→21:50)
[2017-08-26] MEDS: PRENATAL VITAMIN W DHA CAPSULE PO SCH (10:59)
[2017-08-26] MEDS: SENNOSIDES/DOCUSATE 8.6-50 MG 1 EACH TABLET PO SCH (10:59)
[2017-08-26] MEDS: DOCUSATE SODIUM 100 MG CAPSULE PO SCH ×2 (10:59→18:21)
[2017-08-26] MEDS: FERROUS SULFATE 325 MG TABLET PO SCH ×2 (10:59→18:21)
--- NOTE | 2017-08-26 15:10 | PDOC PROGRESS REPORT ---
Subjective-OB Progress Note for:: 08/26/17 Subjective: 22yo G1 now P1 s/p VAVD ppd1. Ambulating, voiding and without difficulty. Denies concerns at this time. Physical Exam (OB) Vital Signs: Temp Pulse Resp BP Pulse Ox 97.7 F 86 14 117/75 100 08/26/17 07:56 08/26/17 07:56 08/26/17 07:56 08/26/17 07:56 08/26/17 07:56 Intake & Output 08/25/17 08/26/17 08/27/17 06:59 06:59 06:59 Weight 70.1 kg - General General Appearance: Appears well In distress: None - PIH/Pre-Eclampsia DTR's: 2 + Clonus: Negative Headache: Absent Epigastric Pain: No Visual Changes: No - Episiotomy/Laceration Site Condition: Well Approximated - Lochia Lochia Amount: Scant < 10 ml Lochia Color: Rubra/Red - Abdomen Description: Soft Hernia Present: No Fundal Description: Firm, Midline Fundal Height: u/u - u/2 - Respiratory Respiratory Status: No respiratory distress Chest Status: Nontender - Extremities Upper extremity: Normal inspection Lower extremities: Normal inspection - Neurological Cognition: Normal Orientation: AAOx4 - Psychological Associated symptoms: Normal affect, Normal mood Objective-Diagnostic Laboratory: 08/26/17 07:21 08/24/17 20:17 08/26/17 07:21 WBC 13.7 H RBC 2.44 L Hgb 7.1 L D Hct 21.1 L MCV 86 MCH 29.1 MCHC 33.7 RDW 14.2 H Plt Count 266 Assessment and Plan(PN) - Assessment and Plan (1) Anemia affecting Is this a current diagnosis for this admission?: Yes Plan: increase iron in diet and feso4 bid (2) Hypopotassemia Is this a current diagnosis for this admission?: Yes Plan: repeat CMP now (3) Vacuum extraction, delivered, current hospitalization Is this a current diagnosis for this admission?: Yes Plan: routine pp care - Time Spent with Patient Time with patient: 15-25 minutes Medications reviewed and adjusted accordingly: Yes - Disposition Anticipated Discharge: Home Within: within 24 hours
[2017-08-26 16:38] LABS: ALANINE AMINOTRANSFERASE 21 U/L (9-52); ALBUMIN 2.7 g/dL (3.5-5.0); ALKALINE PHOSPHATASE 146 U/L (38-126); ANION GAP 10 (5-19); ASPARTATE AMINO TRANSFERASE 27 U/L (14-36); BLOOD UREA NITROGEN 8 mg/dL (7-20); CALCIUM 10.2 mg/dL (8.4-10.2); CARBON DIOXIDE 23 mmol/L (22-30); CHLORIDE 104 mmol/L (98-107); GLUCOSE 68 mg/dL (75-110); SODIUM 136.8 mmol/L (137-145); TOTAL PROTEIN 4.9 g/dL (6.3-8.2)
[2017-08-26 16:39] LABS: BILIRUBIN,TOTAL < 0.1 mg/dL (0.2-1.3)
[2017-08-26] MEDS: POTASSIUM CHLORIDE 10 MEQ TABLET.SA PO SCH (18:21)
[2017-08-27] MEDS: IBUPROFEN 800 MG TABLET PO SCH (05:50)
[2017-08-27] MEDS: ACETAMINOPHEN WITH CODEINE #3 TABLET PO PRN ×2 (05:53→10:21)
--- NOTE | 2017-08-27 08:28 | PDOC DISCHARGE SUMMARY ---
<LULU DUNCAN - Last Filed: 08/27/17 08:26> Final Diagnosis Discharge Date: 08/27/17 - Final Diagnosis (1) Failed vacuum extraction delivery Is this a current diagnosis for this admission?: Yes (2) Vacuum extraction, delivered, current hospitalization Is this a current diagnosis for this admission?: Yes (3) Anemia affecting Is this a current diagnosis for this admission?: Yes Discharge Data - Discharge Medication Prescriptions: Acetaminophen with Codeine [Tylenol #3 Tablet] 2 each PO Q4HP PRN #14 tablet PRN Reason: Docusate Sodium [Colace 100 mg Capsule] 100 mg PO BID #60 capsule Ferrous Sulfate [Feosol 325 mg Tablet] 325 mg PO BID #60 tablet Ibuprofen [Motrin 800 mg Tablet] 800 mg PO Q8 #60 tablet Home Medications: Pnv No.95/Ferrous Fum/Folic AC [ Vitamins Tablet] 1 tab PO DAILY Acetaminophen with Codeine [Tylenol #3 Tablet] 2 each PO Q4HP PRN #14 tablet Docusate Sodium [Colace 100 mg Capsule] 100 mg PO BID #60 capsule 08/27/17 Ferrous Sulfate [Feosol 325 mg Tablet] 325 mg PO BID #60 tablet 08/27/17 Ibuprofen [Motrin 800 mg Tablet] 800 mg PO Q8 #60 tablet 08/27/17 Gestational Age: 38.6 Reason(s) for Admission: Onset of Labor Procedures: NST Intrapartum Procedure(s): Vacuum Extraction Complication(s): Laceration-Periurethral - Data Baby 1 Female at 1 minute: 9 at 5 minutes: 9 Weight: 3130 kg Home with Mother: Yes Complications: No - Diagnosis Test Laboratory: Temp Pulse Resp BP Pulse Ox 97.6 F 87 16 116/80 99 08/27/17 03:57 08/27/17 03:57 08/27/17 03:57 08/27/17 03:57 08/27/17 03:57 08/24/17 08/24/17 08/26/17 19:45 20:29 07:21 RBC 3.25 L 2.44 L Hgb 9.5 L 7.1 L D Hct 27.7 L 21.1 L Urine Opiates Screen NEGATIVE - Discharge information/Instructions Discharge Activity: Activity As Tolerated, Pelvic Rest, No tub bath Discharge Diet: Regular Disposition: HOME, SELF-CARE Follow up with: [facility] in: 4, Weeks <TESSA SALMON - Last Filed: 08/27/17 09:39> Final Diagnosis - Final Diagnosis (1) Vacuum extraction, delivered, current hospitalization Is this a current diagnosis for this admission?: Yes Discharge Data Intrapartum Procedure(s): Vacuum Extraction - Pt has successful vacuum assited vaginal delivery - Diagnosis Test Laboratory: Temp Pulse Resp BP Pulse Ox 98.2 F 76 16 125/76 99 08/27/17 08:18 08/27/17 08:18 08/27/17 08:18 08/27/17 08:18 08/27/17 08:18 08/24/17 08/24/17 08/26/17 19:45 20:29 07:21 RBC 3.25 L 2.44 L Hgb 9.5 L 7.1 L D Hct 27.7 L 21.1 L Urine Opiates Screen NEGATIVE
[2017-08-27] MEDS: FAMOTIDINE 20 MG TABLET PO SCH (10:17)
[2017-08-27] MEDS: FERROUS SULFATE 325 MG TABLET PO SCH (10:17)
[2017-08-27] MEDS: SENNOSIDES/DOCUSATE 8.6-50 MG 1 EACH TABLET PO SCH (10:17)
[2017-08-27] MEDS: POTASSIUM CHLORIDE 10 MEQ TABLET.SA PO SCH (10:17)
[2017-08-27] MEDS: PRENATAL VITAMIN W DHA CAPSULE PO SCH (10:17)
[2017-08-27] MEDS: DOCUSATE SODIUM 100 MG CAPSULE PO SCH (10:17)
[2017-08-27 12:11] VITALS: BP 140/88
== END 2017-08-27 13:00 | disposition home or self-care (01) | DRG 775 ==
LOC: LC 19:15 → LR 21:54 → 2N 08-25 12:53
PROVIDERS: ADMIT Obstetrics & Gynecology; ATTEND Obstetrics & Gynecology
PROC: 10D07Z6 Extraction of Products of Conception, Vacuum, Via Natural or Artificial Opening (ICD-10-PCS; principal; 2017-08-25)
PROC: 0KQM0ZZ Repair Perineum Muscle, Open Approach (ICD-10-PCS; 2017-08-25)
DX: O14.94 Unspecified pre-eclampsia, complicating childbirth (principal); D62 Acute posthemorrhagic anemia; O36.0930 Maternal care for other rhesus isoimmunization, third trimester, not applicable or unspecified; O71.82 Other specified trauma to perineum and vulva; O76 Abnormality in fetal heart rate and rhythm complicating labor and delivery; O99.02 Anemia complicating childbirth; Z3A.38 38 weeks gestation of pregnancy; Z37.0 Single live birth
CPT/HCPCS: 36415; 80053; 80307; 81005; 82570; 83615; 84156; 84550; 85025; 85027; 85461; 86592; 86850; 86870; 86900; 86901; 90715; J0696; J2405; J2590; J2790; J3480; J3490

== ENCOUNTER 2018-02-22 10:33 | Emergency (ER) | payer MEDICAID, OTHER ==
--- NOTE | 2018-02-22 12:17 | ER Document Report ---
HPI - HPI Patient complains to provider of: Menstrual. 3 weeks Onset: Other - 3 weeks Onset/Duration: Persistent Quality of pain: Cramping Pain Level: 3 Context: Patient presents complaining of vaginal bleeding for the past 3 weeks. Patient states she is a history of anemia and is concerned about her continued vaginal bleeding. Patient denies any concerns about any sexually transmitted infection. Patient does report pelvic cramping. Patient denies any urinary symptoms. Associated Symptoms: Other - Vaginal bleeding. denies: Fever, Nausea, Vomiting Exacerbated by: Denies Relieved by: Denies Similar symptoms previously: No Recently seen / treated by doctor: No - ROS ROS below otherwise negative: Yes Systems Reviewed and Negative: Yes All other systems reviewed and negative - CONSTITUTIONAL Constitutional: DENIES: Fever, Chills - GASTROINTESTINAL Gastrointestinal: REPORTS: Abdominal Pain - REPRODUCTIVE Reproductive: REPORTS: Abnormal bleeding / discharge. DENIES: : - MUSCULOSKELETAL Musculoskeletal: DENIES: Back Pain - DERM Skin Color: Normal Skin Problems: None Past Medical History - General Information source: Patient - Social History Smoking Status: Never Smoker Chew tobacco use (# tins/day): No Frequency of alcohol use: None Drug Abuse: None Occupation: None Family History: Reviewed & Not Pertinent Patient has suicidal ideation: No Patient has homicidal ideation: No - Medical History Medical History: Other - Anemia Renal/ Medical History: Denies: Hx Peritoneal Dialysis Past Surgical History: Reports: Hx Tonsillectomy - Immunizations Hx Diphtheria, Pertussis, Tetanus Vaccination: Yes Vertical Provider Document - CONSTITUTIONAL Agree With Documented VS: Yes Exam Limitations: No Limitations General Appearance: WD/WN, No Apparent Distress - INFECTION CONTROL TRAVEL OUTSIDE OF THE [place] IN LAST 30 DAYS: No - HEENT HEENT: Atraumatic, Normocephalic - NECK Neck: Normal Inspection, Supple - RESPIRATORY Respiratory: Breath Sounds Normal, No Respiratory Distress - CARDIOVASCULAR Cardiovascular: Regular Rate, Regular Rhythm - GI/ABDOMEN Gastrointestinal: Abdomen Soft, Abdomen Tender - lower pelvic tenderness, no mcburney tenderness - REPRODUCTIVE Female Genitalia: CMT, Adnexal Pain-Right, Adnexal Pain-Left Notes: no vaginal bleeding - BACK Back: Normal Inspection. negative: CVA Tenderness-Right, CVA Tenderness-Left - MUSCULOSKELETAL/EXTREMETIES Musculoskeletal/Extremeties: CHELSEA JOHNSON - NEURO Level of Consciousness: Awake, Alert, Appropriate Motor/Sensory: No Motor Deficit - DERM Integumentary: Warm, Dry, No Rash Course - Re-evaluation Re-evalutation: 02/22/18 14:13 Patient presents with lower pelvic pain that has been present for the past 3 weeks that coincided with vaginal bleeding symptoms. Patient without any fever or leukocytosis. Patient encouraged to follow-up with a PLAYGROUND ATTENDANT provider for further evaluation of irregular menstrual bleeding. Patient presents with abdominal pain without signs of peritonitis or other life-threatening or serious etiology. Patient appears stable for discharge and has been instructed to return immediately if the symptoms worsen in any way, or in 8-12 hours if not improved for reevaluation. The patient has been instructed to return if the symptoms worsen or change in any way. - Vital Signs Vital signs: Temp Pulse Resp BP Pulse Ox 98.4 F 81 18 130/77 H 100 02/22/18 10:48 02/22/18 10:48 02/22/18 10:48 02/22/18 10:48 02/22/18 10:48 - Laboratory Result Diagrams: 02/22/18 13:25 Discharge - Discharge Clinical Impression: Pelvic pain, Dysmenorrhea Condition: Stable Disposition: HOME, SELF-CARE Instructions: Anti-Inflammatory Medication ([facility]), Dysmenorrhea ([facility]), Pelvic Pain ([facility]) Additional Instructions: Return immediately for any new or worsening symptoms Followup with your primary care provider, call tomorrow to make a followup appointment Prescriptions: Naproxen [Naprosyn 250 Nmg Tablet] 1 tab PO BID #14 tablet Referrals: NICKOLAS TAPIA MD [Primary Care Provider] - Follow up as needed [facility] [Provider Group] - Follow up as needed
--- NOTE | 2018-02-22 13:43 | RADIOLOGY REPORT (SQ) ---
EXAM DESCRIPTION: U/S NON OB PEL TV W/DOPPLER COMPLETED DATE/TIME: 02/22/2018 1:20 pm REASON FOR STUDY: pelvic pain, vag bleeding COMPARISON: None. TECHNIQUE: Dynamic and static grayscale images acquired of the pelvis via transvaginal approach and recorded on PACS. Additional selected color Doppler and spectral images recorded. LIMITATIONS: None. FINDINGS: UTERUS: Contour normal. No mass. ENDOMETRIAL STRIPE: Occasional echogenic microcalcifications of no clinical significance. CERVIX: No nabothian cysts. RIGHT OVARY AND DOPPLER: Normal size. No worrisome masses. Normal arterial vascular flow without evid ence for torsion. LEFT OVARY AND DOPPLER: Normal size. No worrisome masses. Normal arterial vascular flow without evide nce for torsion. FREE FLUID: None noted. OTHER: No other significant finding. MEASUREMENTS: UTERUS: 7.0 x 4.0 x 5.2 cm ENDOMETRIAL STRIPE: 14 mm RIGHT OVARY: 2.9 x 1.7 x 1.5 cm LEFT OVARY: 2.6 x 1.8 x 1.4 cm IMPRESSION: NORMAL TRANSVAGINAL PELVIC ULTRASOUND. TECHNICAL DOCUMENTATION: JOB ID: [id number] TV [employer] Wizard App- All Rights Reserved Rev-11/26 Reading location - IP/workstation name: [email or web address]
[2018-02-22 13:56] LABS: ABSOLUTE BASOPHILS # (AUTO) 0.1 10^3/uL (0.0-0.2); ABSOLUTE EOSINOPHILS # (AUTO) 0.1 10^3/uL (0.0-0.6); ABSOLUTE MONOCYTES (AUTO) 0.2 10^3/uL (0.1-1.4); ABSOLUTE NEUT (AUTO) 3.3 10^3/uL (1.7-8.2); BASOPHILS % (AUTO) 1.1 % (0-2); EOSINOPHILS % (AUTO) 1.8 % (0-6); HEMATOCRIT 39.9 % (36.0-47.0); HEMOGLOBIN 13.5 g/dL (12.0-15.5); LYMPHOCYTES % (AUTO) 34.8 % (13-45); MEAN CORPUSCULAR HEMOGLOBIN 31.5 pg (27.0-33.4); MEAN CORPUSCULAR HGB CONC 33.8 g/dL (32.0-36.0); MEAN CORPUSCULAR VOLUME 93 fl (80-97); MONOCYTES % (AUTO) 4.4 % (3-13); PLATELET COUNT 293 10^3/uL (150-450); RED BLOOD COUNT 4.28 10^6/uL (3.72-5.28); RED CELL DISTRIBUTION WIDTH 12.9 % (11.5-14.0); SEGMENTED NEUTROPHILS % (AUTO) 57.9 % (42-78); TOTAL CELLS COUNTED % (AUTO) 100 %; WHITE BLOOD COUNT 5.7 10^3/uL (4.0-10.5)
[2018-02-22 14:02] LABS: BACTERIA (WET MOUNT) 3+ BACTERIA SEEN; T.VAGINALIS (WET MOUNT) NO TRICHOMONAS SEEN; WBCS (WET MOUNT) RARE WBCS SEEN; YEAST (WET MOUNT) NO YEAST SEEN
[2018-02-22] MEDS ORDERED: IBUPROFEN 800 MG TABLET PO ONE (14:20)
[2018-02-22 14:32] VITALS: BP 128/70
[2018-02-22 15:35] LABS: CHLAM PCR NOT DETECTED (NOT DETECT); GON PCR NOT DETECTED (NOT DETECT)
== END 2018-02-22 14:33 | disposition home or self-care (01) ==
LOC: ER 10:33
DX: N94.6 Dysmenorrhea, unspecified (principal); R10.2 Pelvic and perineal pain; Z86.2 Personal history of diseases of the blood and blood-forming organs and certain disorders involving the immune mechanism
CPT/HCPCS: 36415; 76830; 84703; 85025; 87210; 87491; 87591; 93976; 99284

== ENCOUNTER 2018-05-22 16:00 | Emergency (ER) | payer OTHER ==
--- NOTE | 2018-05-22 16:52 | ER Document Report ---
ED Medical Screen (RME) - General Chief Complaint: Abdominal Pain Stated Complaint: STOMACH PAIN Time Seen by Provider: 05/22/18 16:50 Mode of Arrival: Ambulatory Information source: Patient TRAVEL OUTSIDE OF THE [place] IN LAST 30 DAYS: No - HPI Patient complains to provider of: abd pain Onset: Yesterday - pt with RLQ abdominal pain intermittent since yesterday. - Related Data Allergies/Adverse Reactions: amoxicillin Allergy (Unknown, Verified 02/22/18 10:41) Skin Redness Past Medical History - Social History Chew tobacco use (# tins/day): No Frequency of alcohol use: Rare Drug Abuse: None Renal/ Medical History: Denies: Hx Peritoneal Dialysis Past Surgical History: Reports: Hx Tonsillectomy - Immunizations Hx Diphtheria, Pertussis, Tetanus Vaccination: Yes History of Influenza Vaccine for 04/2017 - 09/2017 Season: No Physical Exam - Vital signs Vitals: Temp Pulse Resp BP Pulse Ox 98.4 F 114 H 18 148/88 H 96 05/22/18 16:04 05/22/18 16:04 05/22/18 16:04 05/22/18 16:04 05/22/18 16:04 Course - Vital Signs Vital signs: Temp Pulse Resp BP Pulse Ox 98.4 F 114 H 18 148/88 H 96 05/22/18 16:04 05/22/18 16:04 05/22/18 16:04 05/22/18 16:04 05/22/18 16:04 Doctor's Discharge - Discharge Referrals: NICKOLAS TAPIA MD [Primary Care Provider] - Follow up as needed
[2018-05-22 17:21] LABS: ABSOLUTE BASOPHILS # (AUTO) 0.1 10^3/uL (0.0-0.2); ABSOLUTE EOSINOPHILS # (AUTO) 0.2 10^3/uL (0.0-0.6); ABSOLUTE LYMPHOCYTES (AUTO) 2.2 10^3/uL (0.5-4.7); ABSOLUTE MONOCYTES (AUTO) 0.4 10^3/uL (0.1-1.4); ABSOLUTE NEUT (AUTO) 4.8 10^3/uL (1.7-8.2); BASOPHILS % (AUTO) 1.1 % (0-2); HEMATOCRIT 40.6 % (36.0-47.0); HEMOGLOBIN 13.6 g/dL (12.0-15.5); LYMPHOCYTES % (AUTO) 28.8 % (13-45); MEAN CORPUSCULAR HGB CONC 33.5 g/dL (32.0-36.0); MEAN CORPUSCULAR VOLUME 93 fl (80-97); MONOCYTES % (AUTO) 4.8 % (3-13); PLATELET COUNT 308 10^3/uL (150-450); RED BLOOD COUNT 4.38 10^6/uL (3.72-5.28); RED CELL DISTRIBUTION WIDTH 11.9 % (11.5-14.0); SEGMENTED NEUTROPHILS % (AUTO) 63.3 % (42-78); TOTAL CELLS COUNTED % (AUTO) 100 %; WHITE BLOOD COUNT 7.6 10^3/uL (4.0-10.5)
[2018-05-22 17:34] LABS: APPEARANCE,URINE CLOUDY; BILIRUBIN,URINE NEGATIVE (NEGATIVE); COLOR,URINE YELLOW; GLUCOSE, URINE NEGATIVE (NEGATIVE); KETONES,URINE NEGATIVE (NEGATIVE); LEUKOCYTE ESTERASE,URINE NEGATIVE (NEGATIVE); NITRITE,URINE NEGATIVE (NEGATIVE); PROTEIN,URINE NEGATIVE (NEGATIVE); URINE SPECIFIC GRAVITY 1.012
[2018-05-22 17:40] LABS: ALANINE AMINOTRANSFERASE 24 U/L (9-52); ALBUMIN 4.6 g/dL (3.5-5.0); ALKALINE PHOSPHATASE 67 U/L (38-126); ANION GAP 14 (5-19); ASPARTATE AMINO TRANSFERASE 25 U/L (14-36); BILIRUBIN,DIRECT 0.2 mg/dL (0.0-0.4); BILIRUBIN,TOTAL 0.4 mg/dL (0.2-1.3); BLOOD UREA NITROGEN 11 mg/dL (7-20); CARBON DIOXIDE 28 mmol/L (22-30); CHLORIDE 101 mmol/L (98-107); GLUCOSE 77 mg/dL (75-110); SODIUM 143.1 mmol/L (137-145); TOTAL PROTEIN 7.5 g/dL (6.3-8.2)
--- NOTE | 2018-05-22 17:42 | ER Document Report ---
ED General - General Chief Complaint: Abdominal Pain Stated Complaint: STOMACH PAIN Time Seen by Provider: 05/22/18 16:50 Mode of Arrival: Ambulatory Notes: Patient is a 23-year-old female that presents to the emergency department for chief complaint of right lower quadrant pain. Patient states she started having this pain yesterday, progressively got worse through today, she had associated nausea but no vomiting. Denies having any diarrhea. She describes the pain as a 8 out of 10, in the right lower quadrant, it is nonradiating., Worse when she pushes on it. Nothing seems to make it better. She did not take any medications prior to ED arrival. She denies noting any dysuria, hematuria, fevers, chills, night sweats, chest pain, shortness of breath or difficulty breathing. She does not believe that she is . Past Medical History: Denies chronic medical conditions Past Surgical History: Tonsillectomy, lithotripsy Social History: Denies tobacco, alcohol or illicit drug use Family History: Reviewed and noncontributory for presenting illness Allergies: Reviewed, see documented allergy list. REVIEW OF SYSTEMS: Other than noted above, the 12 point review of systems was reviewed with the patient and were negative, all pertinent findings are included in the HPI. PHYSICAL EXAMINATION: Vital signs reviewed, nursing noted reviewed. GENERAL: Well-appearing, well-nourished and in no acute distress. HEAD: Atraumatic, normocephalic. EYES: Eyes appear normal, extraocular movements intact, sclera anicteric, conjunctiva are normal. ENT: nares patent, oropharynx clear without exudates. Moist mucous membranes. NECK: Normal range of motion, supple without lymphadenopathy LUNGS: Breath sounds clear to auscultation bilaterally and equal. No wheezes rales or rhonchi. HEART: Heart rate tachycardic, regular rhythm ABDOMEN: Soft, right lower quadrant tenderness with palpation, normoactive bowel sounds. No rebound, guarding, or rigidity. No masses appreciated. EXTREMITIES: Nontender, good range of motion, no pitting or edema. NEUROLOGICAL: No focal neurological deficits. Moves all extremities spontaneously Motor and sensory grossly intact on exam. PSYCH: Normal mood, normal affect. SKIN: Warm, Dry, normal turgor, no rashes or lesions noted on exposed skin TRAVEL OUTSIDE OF THE [place] IN LAST 30 DAYS: No - Related Data Allergies/Adverse Reactions: amoxicillin Allergy (Unknown, Verified 02/22/18 10:41) Skin Redness Past Medical History - General Information source: Patient - Social History Smoking Status: Never Smoker Chew tobacco use (# tins/day): No Frequency of alcohol use: Rare Drug Abuse: None Family History: Reviewed & Not Pertinent Patient has suicidal ideation: No Patient has homicidal ideation: No Renal/ Medical History: Denies: Hx Peritoneal Dialysis Past Surgical History: Reports: Hx Tonsillectomy - Immunizations Hx Diphtheria, Pertussis, Tetanus Vaccination: Yes Physical Exam - Vital signs Vitals: Temp Pulse Resp BP Pulse Ox 98.4 F 114 H 18 148/88 H 96 05/22/18 16:04 05/22/18 16:04 05/22/18 16:04 05/22/18 16:04 05/22/18 16:04 Course - Re-evaluation Re-evalutation: Patient seen and examined vital signs reviewed. Laboratory data and imaging were ordered as appropriate for the patient's presenting symptoms and complaint, with consideration of any critical or life threatening conditions that may be associated with their obtained history and exam as noted above. Patient was treated with IV fluids, Toradol, and Zofran, and 0.5 mg of IV Dilaudid. Results were reviewed when available and demonstrated negative CT imaging for appendicitis, however there was some prominent mesenteric lymph nodes, which may be consistent with mesenteric lymphadenitis, UA unremarkable, hCG negative, no leukocytosis, CMP was unremarkable as well. The patient was re-evaluated and was improved after treatment, Evaluation was most consistent with mesenteric adenitis, patient was made aware that this could be early appendicitis still, she should monitor her symptoms, and if they worsen she should immediately return to the emergency department. Patient was agreeable to this plan of care. Results were discussed with the patient at this point, after careful consideration I feel that that patient can be discharged from the emergency department, the patient was educated treatments and reasons to return to the emergency department based on their presumed diagnosis as noted above, they were advised to followup with a primary care physician in 2-3 days. Patient was agreeable to plan of care. *Note is created using voice recognition software and may contain spelling, syntax or grammatical errors. Laboratory 05/22/18 05/22/18 05/22/18 17:06 17:06 17:06 WBC 7.6 RBC 4.38 Hgb 13.6 Hct 40.6 MCV 93 MCH 31.0 MCHC 33.5 RDW 11.9 Plt Count 308 Seg Neutrophils % 63.3 Lymphocytes % 28.8 Monocytes % 4.8 Eosinophils % 2.0 Basophils % 1.1 Absolute Neutrophils 4.8 Absolute Lymphocytes 2.2 Absolute Monocytes 0.4 Absolute Eosinophils 0.2 Absolute Basophils 0.1 Sodium 143.1 Potassium 4.0 Chloride 101 Carbon Dioxide 28 Anion Gap 14 BUN 11 Creatinine 0.76 Est GFR ( Amer) > 60 Est GFR (Non-Af Amer) > 60 Glucose 77 Calcium 10.0 Total Bilirubin 0.4 Direct Bilirubin 0.2 Neonat Total Bilirubin Not Reportable Neonat Direct Bilirubin Not Reportable Neonat Indirect Bili Not Reportable AST 25 ALT 24 Alkaline Phosphatase 67 Total Protein 7.5 Albumin 4.6 Lipase 43.0 Urine Color Urine Appearance Urine pH Ur Specific [place] Urine Protein Urine Glucose (UA) Urine Ketones Urine Blood Urine Nitrite Urine Bilirubin Urine Urobilinogen Ur Leukocyte Esterase Urine WBC (Auto) Urine RBC (Auto) Squamous Epi Cells Auto Urine Mucus (Auto) Urine Ascorbic Acid Urine HCG, Qual 05/22/18 17:12 WBC RBC Hgb Hct MCV MCH MCHC RDW Plt Count Seg Neutrophils % Lymphocytes % Monocytes % Eosinophils % Basophils % Absolute Neutrophils Absolute Lymphocytes Absolute Monocytes Absolute Eosinophils Absolute Basophils Sodium Potassium Chloride Carbon Dioxide Anion Gap BUN Creatinine Est GFR ( Amer) Est GFR (Non-Af Amer) Glucose Calcium Total Bilirubin Direct Bilirubin Neonat Total Bilirubin Neonat Direct Bilirubin Neonat Indirect Bili AST ALT Alkaline Phosphatase Total Protein Albumin Lipase Urine Color YELLOW Urine Appearance CLOUDY Urine pH 7.0 Ur Specific [place] 1.012 Urine Protein NEGATIVE Urine Glucose (UA) NEGATIVE Urine Ketones NEGATIVE Urine Blood SMALL H Urine Nitrite NEGATIVE Urine Bilirubin NEGATIVE Urine Urobilinogen 2.0 H Ur Leukocyte Esterase NEGATIVE Urine WBC (Auto) 0 Urine RBC (Auto) 1 Squamous Epi Cells Auto 1 Urine Mucus (Auto) RARE Urine Ascorbic Acid NEGATIVE Urine HCG, Qual NEGATIVE Abdomen/Pelvis CT 05/22/18 16:50 IMPRESSION: Multiple prominent mesenteric lymph nodes within the right lower quadrant of the abdomen with a normal appearing appendix. Findings may represent mesenteric adenitis. - Vital Signs Vital signs: Temp Pulse Resp BP Pulse Ox 98.2 F 94 16 124/64 100 05/22/18 19:26 05/22/18 19:26 05/22/18 19:26 05/22/18 19:26 05/22/18 19:26 - Laboratory Result Diagrams: 05/22/18 17:06 05/22/18 17:06 Laboratory results interpreted by me: 05/22/18 17:12 Urine Blood SMALL H Urine Urobilinogen 2.0 H Discharge - Discharge Clinical Impression: Mesenteric adenitis Abdominal pain Qualifiers: Abdominal location: right lower quadrant Qualified Code(s): R10.31 - Right lower quadrant pain Condition: Stable Disposition: HOME, SELF-CARE Instructions: Abdominal Pain ([facility]) Additional Instructions: Please monitor your symptoms closely, if your pain is not improving over the next 24-48 hours, do not hesitate to return back to the emergency department for repeat evaluation as this still could be early appendicitis, however your CAT scan today is negative for appendicitis. Please follow-up with her primary care physician. Prescriptions: Naproxen [Naprosyn] 500 mg PO BID PRN #30 tablet PRN Reason: abdominal pain Ondansetron [Zofran Odt 4 mg Tablet] 1 tab PO Q8H PRN #15 tab.rapdis PRN Reason: For Nausea/Vomiting Referrals: NICKOLAS TAPIA MD [Primary Care Provider] - Follow up in 3-5 days SANJU BURROUGHS MD [COMMUNITY BASED STAFF] - Follow up in 3-5 days (or your primary care.)
--- NOTE | 2018-05-22 18:11 | RADIOLOGY REPORT (SQ) ---
EXAM DESCRIPTION: CT ABD/PELVIS WITH IV ONLY COMPLETED DATE/TIME: 05/22/2018 5:56 pm REASON FOR STUDY: RLQ pain COMPARISON: 02/22/2018 and earlier TECHNIQUE: CT scan of the abdomen and pelvis performed using helical scanning technique with dynamic intravenous contrast injection. No oral contrast. Images reviewed with lung, soft tissue, and bone windows. Reconstructed coronal and sagittal MPR images reviewed. Delayed images for evaluation of the urinary system also acquired. All images stored on PACS. All CT scanners at this facility use dose modulation, iterative reconstruction, and/or weight based d osing when appropriate to reduce radiation dose to as low as reasonably achievable (ALARA). [facility]: Dose Right [facility]: CareDose [facility]: Dose Right [facility]: Teradose 4D [facility]: [employer] CONTRAST TYPE AND DOSE: contrast/concentration: Isovue 350.00 mg/ml; Total Contrast Delivered: 82.0 ml; Total Saline Delivered: 68.0 ml 82 mL IV of Omnipaque 350- low osmolar. RENAL FUNCTION: BUN 11 creatinine 0.76 RADIATION DOSE: CT Rad equipment meets quality standard of care and radiation dose reduction techniq ues were employed. CTDIvol: 8.4 - 11.8 mGy. DLP: 1159 mGy-cm.. LIMITATIONS: None. FINDINGS: LOWER CHEST: No significant findings. No nodules or infiltrates. LIVER: Normal size. No masses. No dilated ducts. SPLEEN: Normal size. No focal lesions. PANCREAS: No masses. No significant calcifications. No adjacent inflammation or peripancreatic fluid collections. Pancreatic duct not dilated. GALLBLADDER: No identified stones by CT criteria. No inflammatory changes to suggest cholecystitis. ADRENAL GLANDS: No significant masses or asymmetry. RIGHT KIDNEY AND URETER: No solid masses. No significant calcifications. No hydronephrosis or hyd roureter. LEFT KIDNEY AND URETER: No solid masses. No significant calcifications. No hydronephrosis or hydr oureter. AORTA AND VESSELS: No aneurysm. No dissection. Renal arteries, SMA, celiac without stenosis. RETROPERITONEUM: No retroperitoneal adenopathy, hemorrhage or masses. BOWEL AND PERITONEAL CAVITY: No masses or inflammatory changes. No free fluid or peritoneal masses. No intraperitoneal free air. Multiple prominent mesenteric lymph nodes within the right lower quadra nt of the abdomen. APPENDIX: Normal. PELVIS: No mass. No free fluid. Normal bladder. Uterus is retroverted ABDOMINAL WALL: No masses. No hernias. BONES: No significant or acute findings. OTHER: No other significant finding. IMPRESSION: Multiple prominent mesenteric lymph nodes within the right lower quadrant of the abdomen with a normal appearing appendix. Findings may represent mesenteric adenitis. TECHNICAL DOCUMENTATION: JOB ID: [id number] Quality ID # [id number]: Final reports with documentation of one or more dose reduction techniques (e.g., Au tomated exposure control, adjustment of the mA and/or kV according to patient size, use of iterative reconstruction technique) 2010 [employer]- All Rights Reserved Reading location - IP/workstation name: [email or web address]
[2018-05-22] MEDS ORDERED: ONDANSETRON HCL INJ/PF 4 MG/2 ML SDV IV ONE (18:25)
[2018-05-22] MEDS ORDERED: NORMAL SALINE 1000 ML 1,000 ML IV ONE (18:25)
[2018-05-22] MEDS ORDERED: KETOROLAC TROMETHAMINE INJ/PF 30 MG/1 ML SDV IV ONE (18:25)
[2018-05-22] MEDS ORDERED: HYDROCODONE/ACETAMINOPHEN 5-325 MG (6 TAB/ER DISP) PO PRN (18:58)
[2018-05-22] MEDS ORDERED: HYDROMORPHONE HCL INJ/PF 2 MG/ML AMPULE IV ONE (19:05)
[2018-05-22 19:27] VITALS: BP 124/64
== END 2018-05-22 19:29 | disposition home or self-care (01) ==
LOC: ER 16:00
DX: I88.0 Nonspecific mesenteric lymphadenitis (principal); R10.31 Right lower quadrant pain; R11.0 Nausea; R00.0 Tachycardia, unspecified; Z88.0 Allergy status to penicillin
CPT/HCPCS: 99284; 96374; 96375; 36415; 83690; 85025; 81025; 80053; 81001; 74177; J1885; J1170; J2405; J7030; 96361

== ENCOUNTER 2018-05-24 11:58 | Emergency (ER) | payer OTHER ==
--- NOTE | 2018-05-24 14:02 | ER Document Report ---
ED General - General Chief Complaint: Lower Abdominal Pain Stated Complaint: ABDOMINAL PAIN Time Seen by Provider: 05/24/18 13:45 TRAVEL OUTSIDE OF THE [place] IN LAST 30 DAYS: No - HPI Notes: Patient is a 23-year-old female with no significant past medical history who presents to the ED complaining of worsening right lower quadrant abdominal pain since her visit 2 days ago. Patient had a CT scan performed at that time and was diagnosed with adenitis. She was told to come back with worsening symptoms. Patient states that her symptoms have been worsening over the last couple days which is what prompted her to come to the emergency department. Patient's worsening symptoms primarily pain and associated nausea. Patient states that she did vomit last evening. She has not had any melena or hematochezia. She is still able to eat and drink, but does have a decreased p.o. intake. She is urinating normally. She has not had any vaginal discharge , odor, or bleeding. The pain does not radiate otherwise. Denies any headache , fever, URI, sore throat, chest pain, palpitations, syncope, cough, shortness of breath, wheeze, dyspnea, diarrhea, urinary retention, dysuria, hematuria, back pain, loss of control of bowel or bladder, numbness/tingling, saddle anesthesia, muscle paralysis/weakness, or rash. - Related Data Allergies/Adverse Reactions: amoxicillin Allergy (Unknown, Verified 05/24/18 12:01) Skin Redness Past Medical History - Social History Smoking Status: Never Smoker Family History: Reviewed & Not Pertinent Patient has suicidal ideation: No Patient has homicidal ideation: No Renal/ Medical History: Denies: Hx Peritoneal Dialysis Past Surgical History: Reports: Hx Tonsillectomy - Immunizations Hx Diphtheria, Pertussis, Tetanus Vaccination: Yes Review of Systems - Review of Systems -: Yes All other systems reviewed and negative Physical Exam - Vital signs Vitals: Temp Pulse Resp BP Pulse Ox 98.5 F 99 18 106/69 98 05/24/18 12:05 05/24/18 12:05 05/24/18 12:05 05/24/18 12:05 05/24/18 12:05 - Notes Notes: PHYSICAL EXAMINATION: GENERAL: Well-appearing, well-nourished and in no acute distress. A&Ox4. Answers questions appropriately. HEAD: Atraumatic, normocephalic. EYES: Pupils equal round and reactive to light, extraocular movements intact, sclera anicteric, conjunctiva are normal. ENT: Nares patent and without discharge. oropharynx clear without exudates. No tonsilar hypertrophy or erythema. Moist mucous membranes. NECK: Normal range of motion, supple without lymphadenopathy LUNGS: Breath sounds clear to auscultation bilaterally and equal. No wheezes rales or rhonchi. HEART: Regular rate and rhythm without murmurs, rubs, gallops. ABDOMEN: Soft, nondistended abdomen. No guarding, no rebound. No masses appreciated. Normal bowel sounds present. No CVA tenderness bilaterally. + moderate tenderness rt abd and RLQ. Musculoskeletal: FROM to passive/active. Strength 5+/5. Extremities: No cyanosis, clubbing, or edema b/l. Peripheral pulses 2+. Capillary refill less than 3 seconds. NEUROLOGICAL: Normal speech, normal gait. PSYCH: Normal mood, normal affect. SKIN: Warm, Dry, normal turgor, no rashes or lesions noted. Course - Re-evaluation Re-evalutation: 05/24/18 14:[address] Rivera. We will recheck labs and CT. Risk/benefit reviewed with radiation exposure to the patient who would like the scan performed as her primary concern is possible development of appendicitis from prev discharge instructions. 05/24/18 16:22 Patient is an afebrile, well-hydrated, 23-year-old female who presents to the ED with constipation with noted moderate to large amount of stool on CT scan. Patient otherwise has abdominal pain unspecified. Vitals are acceptable without any significant tachycardia, tachypnea, or hypoxia. PE is otherwise unremarkable. Patient has not had any worsening symptoms throughout her stay. She is nontoxic-appearing and is tolerating p.o. without difficulty at this time. CBC, CMP, lipase, urinalysis, hCG were unremarkable for any acute pathology. I did offer the patient an enema and medicine here in the emergency department to help evacuate some of the stool which could be causing her discomfort, but patient declined. She prefers to take her medicine at home. No further labs or imaging warranted at this time. Low suspicion/risk for acute appendicitis, bowel obstruction, acute cholecystitis, acute cholangitis, perforated diverticulitis, incarcerated hernia, pancreatitis, perforated ulcer, peritonitis, sepsis, pelvic inflammatory disease, ectopic , tubo- ovarian abscess, ovarian torsion, or other systemic emergent condition at this time. Patient is aware that her condition can change from initial presentation and she needs to monitor symptoms closely and seek medical attention if any acute changes. I will send her home with a prescription for magnesium citrate as well as oxycodone. I did review with patient that narcotics will result in further constipation so she needs to try to evacuate her bowels as soon as she can. Conservative measures otherwise for symptoms. Recheck with your PCM in 2- 3 days. Consider consult with a tile erector. Return to the ED with any worsening/concerning symptoms otherwise as reviewed in discharge. Patient is in agreement. - Vital Signs Vital signs: Temp Pulse Resp BP Pulse Ox 98.5 F 99 18 106/69 98 05/24/18 12:05 05/24/18 12:05 05/24/18 12:05 05/24/18 12:05 05/24/18 12:05 - Laboratory Result Diagrams: 05/24/18 14:52 05/24/18 14:52 Discharge - Discharge Clinical Impression: Nonspecific abdominal pain Constipation Qualifiers: Constipation type: unspecified constipation type Qualified Code(s): K59.00 - Constipation, unspecified Condition: Stable Disposition: HOME, SELF-CARE Instructions: Abdominal Pain ([facility]), Bulk Laxatives, Observation for Appendicitis ([facility]) Additional Instructions: Maintain adequate fluid and food intake [place] diet ([employer] Bananas, rice, apples, toast, etc Zofran as needed Take Mag Citrate as directed Monitor for any worsening symptoms Make sure you are staying hydrated enough to urinate and have normal BM's Recheck with your PCM in 2-3 days Consider consult with Gastroenterology for ongoing/worsening symptoms Return to the ED with any worsening symptoms and/or development of fever, headache, chest pain, palpitations, syncope, shortness of breath, trouble breathing, abdominal pain, n/v/d, blood in stool/urine, weakness, or other worsening symptoms that are concerning to you. Prescriptions: Magnesium Citrate [Citrate of Magnesia 296 ml Bottle] 296 ml PO ONCE PRN #1 bottle PRN Reason: Referrals: PHILIP BENNETT MD [ACTIVE STAFF] - Follow up as needed JENNIFER RAMÍREZ MD [ACTIVE STAFF] - Follow up as needed
[2018-05-24] MEDS ORDERED: MORPHINE SULFATE 10 MG/ML INJ IV ONE (14:03)
[2018-05-24] MEDS ORDERED: ONDANSETRON HCL INJ/PF 4 MG/2 ML SDV IV ONE (14:03)
[2018-05-24 15:03] LABS: ABSOLUTE BASOPHILS # (AUTO) 0.1 10^3/uL (0.0-0.2); ABSOLUTE EOSINOPHILS # (AUTO) 0.1 10^3/uL (0.0-0.6); ABSOLUTE LYMPHOCYTES (AUTO) 2.1 10^3/uL (0.5-4.7); ABSOLUTE MONOCYTES (AUTO) 0.3 10^3/uL (0.1-1.4); ABSOLUTE NEUT (AUTO) 3.8 10^3/uL (1.7-8.2); EOSINOPHILS % (AUTO) 1.6 % (0-6); HEMATOCRIT 37.1 % (36.0-47.0); HEMOGLOBIN 12.7 g/dL (12.0-15.5); LYMPHOCYTES % (AUTO) 32.7 % (13-45); MEAN CORPUSCULAR HEMOGLOBIN 31.6 pg (27.0-33.4); MEAN CORPUSCULAR HGB CONC 34.2 g/dL (32.0-36.0); MEAN CORPUSCULAR VOLUME 93 fl (80-97); MONOCYTES % (AUTO) 4.8 % (3-13); PLATELET COUNT 277 10^3/uL (150-450); RED BLOOD COUNT 4.01 10^6/uL (3.72-5.28); SEGMENTED NEUTROPHILS % (AUTO) 59.9 % (42-78); TOTAL CELLS COUNTED % (AUTO) 100 %; WHITE BLOOD COUNT 6.4 10^3/uL (4.0-10.5)
[2018-05-24 15:17] LABS: APPEARANCE,URINE CLEAR; BILIRUBIN,URINE NEGATIVE (NEGATIVE); COLOR,URINE COLORLESS; GLUCOSE, URINE NEGATIVE (NEGATIVE); KETONES,URINE NEGATIVE (NEGATIVE); LEUKOCYTE ESTERASE,URINE NEGATIVE (NEGATIVE); NITRITE,URINE NEGATIVE (NEGATIVE); PROTEIN,URINE NEGATIVE (NEGATIVE); URINE SPECIFIC GRAVITY 1.008; UROBILINOGEN,URINE NEGATIVE mg/dL (<2.0)
[2018-05-24 15:24] LABS: ALANINE AMINOTRANSFERASE 24 U/L (9-52); ALBUMIN 3.9 g/dL (3.5-5.0); ALKALINE PHOSPHATASE 61 U/L (38-126); ANION GAP 10 (5-19); ASPARTATE AMINO TRANSFERASE 16 U/L (14-36); BILIRUBIN,DIRECT 0.2 mg/dL (0.0-0.4); BILIRUBIN,TOTAL 0.3 mg/dL (0.2-1.3); BLOOD UREA NITROGEN 9 mg/dL (7-20); CALCIUM 9.5 mg/dL (8.4-10.2); CARBON DIOXIDE 28 mmol/L (22-30); CHLORIDE 103 mmol/L (98-107); GLUCOSE 90 mg/dL (75-110); LIPASE 35.2 U/L (23-300); POTASSIUM 4.8 mmol/L (3.6-5.0); SODIUM 141.2 mmol/L (137-145); TOTAL PROTEIN 6.5 g/dL (6.3-8.2)
[2018-05-24] MEDS ORDERED: DIPHENHYDRAMINE HCL 50 MG/ML VIAL IV ONE (15:45)
--- NOTE | 2018-05-24 16:05 | RADIOLOGY REPORT (SQ) ---
EXAM DESCRIPTION: CT ABD/PELVIS WITH IV ONLY COMPLETED DATE/TIME: 05/24/2018 3:49 pm REASON FOR STUDY: worsening RLQ pain COMPARISON: CT abdomen pelvis 05/22/2018 TECHNIQUE: CT scan of the abdomen and pelvis performed using helical scanning technique with dynamic intravenous contrast injection. No oral contrast. Images reviewed with lung, soft tissue, and bone windows. Reconstructed coronal and sagittal MPR images reviewed. Delayed images for evaluation of the urinary system also acquired. All images stored on PACS. All CT scanners at this facility use dose modulation, iterative reconstruction, and/or weight based d osing when appropriate to reduce radiation dose to as low as reasonably achievable (ALARA). [facility]: Dose Right [facility]: CareDose [facility]: Dose Right [facility]: Teradose 4D [facility]: [employer] CONTRAST TYPE AND DOSE: contrast/concentration: Isovue 350.00 mg/ml; Total Contrast Delivered: 48.0 ml; Total Saline Delivered: 61.0 ml RENAL FUNCTION: None required. The patient is less than 50 years old. RADIATION DOSE: CT Rad equipment meets quality standard of care and radiation dose reduction techniq ues were employed. CTDIvol: 9.3 - 13.0 mGy. DLP: 1140 mGy-cm.. LIMITATIONS: None. FINDINGS: LOWER CHEST: No significant findings. No nodules or infiltrates. LIVER: Normal size. No masses. No dilated ducts. SPLEEN: Normal size. No focal lesions. PANCREAS: No masses. No significant calcifications. No adjacent inflammation or peripancreatic fluid collections. Pancreatic duct not dilated. GALLBLADDER: No identified stones by CT criteria. No inflammatory changes to suggest cholecystitis. ADRENAL GLANDS: No significant masses or asymmetry. RIGHT KIDNEY AND URETER: No solid masses. No significant calcifications. No hydronephrosis or hyd roureter. LEFT KIDNEY AND URETER: No solid masses. No significant calcifications. No hydronephrosis or hydr oureter. AORTA AND VESSELS: No aneurysm. No dissection. Renal arteries, SMA, celiac without stenosis. RETROPERITONEUM: No retroperitoneal adenopathy, hemorrhage or masses. BOWEL AND PERITONEAL CAVITY: No masses or inflammatory changes. No free fluid or peritoneal masses. Moderate to large amount of stool in the ascending and transverse colon. No CT evidence of bowel obs truction. Few benign-appearing right lower quadrant mesenteric lymph nodes of doubtful clinical sign ificance APPENDIX: Normal. PELVIS: No mass. No free fluid. Normal bladder. ABDOMINAL WALL: No masses. No hernias. BONES: No significant or acute findings. OTHER: No other significant finding. IMPRESSION: NO SIGNIFICANT OR ACUTE FINDING IN THE ABDOMEN OR PELVIS ON CT SCAN WITH IV CONTRAST. TECHNICAL DOCUMENTATION: JOB ID: [id number] Quality ID # [id number]: Final reports with documentation of one or more dose reduction techniques (e.g., Au tomated exposure control, adjustment of the mA and/or kV according to patient size, use of iterative reconstruction technique) 2010 [employer]- All Rights Reserved Reading location - IP/workstation name: [email or web address]
[2018-05-24] MEDS ORDERED: KETOROLAC TROMETHAMINE INJ/PF 30 MG/1 ML SDV IV ONE (16:51)
[2018-05-24] MEDS ORDERED: METHYLPREDNISOLONE INJ 125 MG/2 ML SDV IV ONE (17:03)
[2018-05-24 17:23] VITALS: BP 128/74
== END 2018-05-24 17:19 | disposition home or self-care (01) ==
LOC: ER 11:58
DX: K59.00 Constipation, unspecified (principal); R10.31 Right lower quadrant pain; R11.2 Nausea with vomiting, unspecified; Z88.0 Allergy status to penicillin
CPT/HCPCS: 99284; 96374; 96375; 36415; 83690; 84703; 85025; 80053; 81001; 74177; J1200; J2930; J1885; J2270; J2405

== ENCOUNTER → 2018-05-31 | Outpatient (CLI) | payer MEDICAID, OTHER ==
--- NOTE | 2018-05-31 09:34 | RADIOLOGY REPORT (SQ) ---
EXAM DESCRIPTION: U/S NON-OB PELVIS TV W/O DOP COMPLETED DATE/TIME: 05/31/2018 9:03 am REASON FOR STUDY: R10.2 PELVIC AND PERINEAL PAIN R10.2 PELVIC AND PERINEAL PAIN COMPARISON: Pelvic ultrasound 02/22/2018 CT abdomen pelvis 05/24/2018, 05/22/2018 TECHNIQUE: Dynamic and static grayscale images acquired of the pelvis via transvaginal approach and recorded on PACS. Additional selected color Doppler and spectral images recorded. LIMITATIONS: None. FINDINGS: UTERUS: Contour normal. No mass. Uterus is 8.2 x 4.8 x 4.1 cm in size ENDOMETRIAL STRIPE: No focal or generalized thickening. No masses. 12 mm in thickness. CERVIX: Cervix closed, 2.4 cm in length. No nabothian cysts. RIGHT OVARY AND DOPPLER: Normal size, 2.7 x 01.6 x 1.5 cm in size. No worrisome masses. Normal arteri al vascular flow without evidence for torsion. LEFT OVARY AND DOPPLER: Normal size 2.8 x 1.9 x 1.9 cm in size. No worrisome masses. 1 cm follicular cyst. Normal arterial vascular flow without evidence for torsion. FREE FLUID: None noted. OTHER: No other significant finding. IMPRESSION: UNREMARKABLE TRANSVAGINAL PELVIC ULTRASOUND. TECHNICAL DOCUMENTATION: JOB ID: [id number] [employer]- All Rights Reserved Reading location - IP/workstation name: [email or web address]
== END ==
LOC: RAD 08:01
PROVIDERS: ATTEND Nurse Practitioner Family
DX: R10.2 Pelvic and perineal pain (principal)
CPT/HCPCS: 76830

== ENCOUNTER 2018-06-12 14:19 | Emergency (ER) | payer OTHER ==
[2018-06-12] MEDS ORDERED: NORMAL SALINE 1000 ML 1,000 ML IV ONE (14:53)
--- NOTE | 2018-06-12 14:53 | ER Document Report ---
ED Medical Screen (RME) - General Chief Complaint: Vaginal Bleeding Stated Complaint: VAGINAL BLEEDING Time Seen by Provider: 06/12/18 14:51 Notes: Patient is a 23-year-old female that presents to the emergency department for chief complaint of vaginal bleeding. Patient reports that she started her period, is having significant bleeding, she states she went through 40 tampons today, which is abnormal for her, she states she has been having abdominal pain , has been seen in the ED multiple times, recently went to have an ultrasound, that was performed here, that was interpreted as unremarkable, by her primary care wanted her to have a cervical biopsy given strong family history of cervical cancer.. ROS: Other than noted above, the 12 point review of systems was reviewed with the patient and were negative, all pertinent findings are included in the HPI. PHYSICAL EXAMINATION: Vital signs reviewed. GENERAL: Well-appearing, well-nourished and in no acute distress. HEAD: Atraumatic, normocephalic. EYES: Pupils equal round extraocular movements intact, conjunctiva are normal. ENT: Nares patent NECK: Normal range of motion CV: Heart regular rate and rhythm LUNGS: No respiratory distress Musculoskeletal: Normal range of motion NEUROLOGICAL: Normal speech PSYCH: Normal mood, normal affect. MDM: Patient seen and examined for rapid initial assessment. Vital signs reviewed. A comprehensive ED assessment and evaluation of the patient, analysis of test results and completion of the medical decision making process will be conducted by additional ED providers. *Note is created using voice recognition software and may contain spelling, syntax or grammatical errors. TRAVEL OUTSIDE OF THE [place] IN LAST 30 DAYS: No - Related Data Allergies/Adverse Reactions: amoxicillin Allergy (Unknown, Verified 05/24/18 12:01) Skin Redness Past Medical History Renal/ Medical History: Denies: Hx Peritoneal Dialysis Past Surgical History: Reports: Hx Tonsillectomy - Immunizations Hx Diphtheria, Pertussis, Tetanus Vaccination: Yes History of Influenza Vaccine for 04/2017 - 09/2017 Season: No Physical Exam - Vital signs Vitals: Temp Pulse Resp BP Pulse Ox 98.9 F 109 H 15 132/80 H 97 06/12/18 14:26 06/12/18 14:26 06/12/18 14:26 06/12/18 14:26 06/12/18 14:26 Course - Vital Signs Vital signs: Temp Pulse Resp BP Pulse Ox 98.9 F 109 H 15 132/80 H 97 06/12/18 14:26 06/12/18 14:26 06/12/18 14:26 06/12/18 14:26 06/12/18 14:26 Doctor's Discharge - Discharge Referrals: PABLO MERA FNP-C [Primary Care Provider] - Follow up as needed
[2018-06-12 15:41] LABS: ABSOLUTE BASOPHILS # (AUTO) 0.1 10^3/uL (0.0-0.2); ABSOLUTE EOSINOPHILS # (AUTO) 0.1 10^3/uL (0.0-0.6); ABSOLUTE LYMPHOCYTES (AUTO) 1.9 10^3/uL (0.5-4.7); ABSOLUTE MONOCYTES (AUTO) 0.4 10^3/uL (0.1-1.4); ABSOLUTE NEUT (AUTO) 4.5 10^3/uL (1.7-8.2); BASOPHILS % (AUTO) 0.9 % (0-2); EOSINOPHILS % (AUTO) 1.4 % (0-6); HEMOGLOBIN 13.8 g/dL (12.0-15.5); LYMPHOCYTES % (AUTO) 26.8 % (13-45); MEAN CORPUSCULAR HEMOGLOBIN 31.9 pg (27.0-33.4); MEAN CORPUSCULAR HGB CONC 34.6 g/dL (32.0-36.0); MEAN CORPUSCULAR VOLUME 92 fl (80-97); MONOCYTES % (AUTO) 5.7 % (3-13); RED BLOOD COUNT 4.34 10^6/uL (3.72-5.28); RED CELL DISTRIBUTION WIDTH 12.6 % (11.5-14.0); SEGMENTED NEUTROPHILS % (AUTO) 65.2 % (42-78); TOTAL CELLS COUNTED % (AUTO) 100 %; WHITE BLOOD COUNT 6.9 10^3/uL (4.0-10.5)
[2018-06-12 15:54] LABS: APPEARANCE,URINE SLIGHTLY-CLOUDY; BILIRUBIN,URINE NEGATIVE (NEGATIVE); CALCIUM OXALATE CRYSTALS,URINE TOO NUMEROUS TO CNT /HPF; COLOR,URINE YELLOW; GLUCOSE, URINE NEGATIVE (NEGATIVE); KETONES,URINE NEGATIVE (NEGATIVE); LEUKOCYTE ESTERASE,URINE TRACE (NEGATIVE); NITRITE,URINE NEGATIVE (NEGATIVE); PROTEIN,URINE NEGATIVE (NEGATIVE); URINE SPECIFIC GRAVITY 1.023; UROBILINOGEN,URINE NEGATIVE mg/dL (<2.0)
[2018-06-12 15:58] LABS: INTERNATIONAL RATION (INR) 0.92; PROTHROMBIN TIME 12.8 SEC (11.4-15.4)
[2018-06-12 15:59] LABS: PARTIAL THROMBOPLASTIN TIME 29.8 SEC (23.5-35.8)
[2018-06-12 16:02] LABS: ALANINE AMINOTRANSFERASE 16 U/L (9-52); ALBUMIN 4.4 g/dL (3.5-5.0); ALKALINE PHOSPHATASE 67 U/L (38-126); ANION GAP 12 (5-19); ASPARTATE AMINO TRANSFERASE 15 U/L (14-36); BILIRUBIN,DIRECT 0.2 mg/dL (0.0-0.4); BILIRUBIN,TOTAL 0.5 mg/dL (0.2-1.3); BLOOD UREA NITROGEN 9 mg/dL (7-20); CALCIUM 9.7 mg/dL (8.4-10.2); CARBON DIOXIDE 28 mmol/L (22-30); CHLORIDE 103 mmol/L (98-107); GLUCOSE 85 mg/dL (75-110); SODIUM 143.1 mmol/L (137-145); TOTAL PROTEIN 7.1 g/dL (6.3-8.2)
[2018-06-12 16:07] LABS: PLATELET COUNT 308 10^3/uL (150-450)
[2018-06-12] MEDS ORDERED: NAPROXEN 250 MG TABLET PO ONE (16:18)
--- NOTE | 2018-06-12 16:30 | ER Document Report ---
ED GI/ - General Chief Complaint: Vaginal Bleeding Stated Complaint: VAGINAL BLEEDING Time Seen by Provider: 06/12/18 14:51 Mode of Arrival: Ambulatory Information source: Patient Notes: Patient reports heavy vaginal bleeding with her menstrual. That started yesterday. Patient states she has been getting menstrual cycles about every 21 days. Patient reports going through over a box of tampons today and feeling dizzy. Patient does complain of lower pelvic cramping. Patient reports that her last menstrual cycle was heavy as well and that she did see her doctor who ordered an outpatient ultrasound. Patient is supposed to follow-up with an OB/ [facility] for an endometrial biopsy but has not done so yet. TRAVEL OUTSIDE OF THE [place] IN LAST 30 DAYS: No - HPI Patient complains to provider of: Pelvic pain, Vaginal bleeding. No: Vaginal discharge Onset: Yesterday Timing/Duration: Persistent Quality of pain: Cramping Pain Level: 3 Context: denies: Location: Pelvis Vaginal bleeding (Compared to normal period): Heavier Sexual history: Active Associated symptoms: denies: Diarrhea, Nausea, Urinary hesitancy, Urinary frequency, Vomiting Exacerbated by: Denies Relieved by: Denies Similar symptoms previously: Yes Recently seen / treated by doctor: No - Related Data Allergies/Adverse Reactions: amoxicillin Allergy (Unknown, Verified 05/24/18 12:01) Skin Redness Past Medical History - General Information source: Patient Last Menstrual Period: 06/11/2018 - Social History Smoking Status: Never Smoker Chew tobacco use (# tins/day): No Frequency of alcohol use: None Drug Abuse: None Lives with: Family Family History: Reviewed & Not Pertinent Patient has suicidal ideation: No Patient has homicidal ideation: No Neurological Medical History: Reports: Other - 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 denies: Fever EENT: No symptoms reported Cardiovascular: Dizziness. denies: Chest pain, Palpitations Respiratory: No symptoms reported. denies: Cough, Short of breath Gastrointestinal: Abdominal pain. denies: Diarrhea, Nausea, Vomiting Genitourinary: No symptoms reported. denies: Dysuria Female Genitourinary: Vaginal bleeding. denies: , Vaginal discharge Musculoskeletal: No symptoms reported. denies: Back pain Skin: No symptoms reported Hematologic/Lymphatic: No symptoms reported Neurological/Psychological: No symptoms reported. denies: Headaches Physical Exam - Vital signs Vitals: Temp Pulse Resp BP Pulse Ox 98.9 F 109 H 15 132/80 H 97 06/12/18 14:26 06/12/18 14:26 06/12/18 14:26 06/12/18 14:26 06/12/18 14:26 - General General appearance: Appears well, Alert In distress: None - HEENT Head: Normocephalic, Atraumatic Eyes: Normal Conjunctiva: Normal Nasal: Normal Mouth/Lips: Normal Mucous membranes: Normal Neck: Normal, Supple. No: Lymphadenopathy - Respiratory Respiratory status: No respiratory distress Chest status: Nontender Breath sounds: Normal Chest palpation: Normal - Cardiovascular Rhythm: Tachycardia Heart sounds: S1 appreciated, S2 appreciated Murmur: No - Abdominal Inspection: Normal Distension: No distension Bowel sounds: Normal Tenderness: Tender - lower pelvic - Genitourinary External exam: Normal Speculum exam: Cervix closed Vaginal bleeding: Mild Bimanuel exam: Adnexal tenderness - Back Back: Normal, Nontender. No: CVA tenderness - Extremities General upper extremity: Normal inspection, Normal ROM General lower extremity: Normal inspection, Normal ROM - Neurological Neuro grossly intact: Yes Cognition: Normal [place] Coma Scale Eye Opening: Spontaneous Suzanne Coma Scale Verbal: Oriented [place] Coma Scale Motor: Obeys Commands Han[place] Coma Scale Total: 15 - Psychological Associated symptoms: Normal affect, Normal mood - Skin Skin Temperature: Warm Skin Moisture: Dry Skin Color: Normal Course - Re-evaluation Re-evalutation: 06/12/18 18:35 Patient with no significant vaginal bleeding on pelvic examination. Patient hemodynamically stable without any signs of anemia noted on CBC. Consulted with Dr. Haider regarding patient presentation, does not recommend repeating CBC at this time. Patient encouraged to follow-up with a sole tier for further evaluation of heavy vaginal bleeding. Patient did state that she is wanting definitive control as she does not want to have any additional children. Patient encouraged to follow-up with a sole tier for discussion of control options. - Vital Signs Vital signs: Temp Pulse Resp BP Pulse Ox 98.7 F 85 16 111/68 100 06/12/18 18:58 06/12/18 18:58 06/12/18 18:58 06/12/18 18:58 06/12/18 18:58 - Laboratory Result Diagrams: 06/12/18 15:12 06/12/18 15:12 Laboratory results interpreted by me: 06/12/18 15:12 Urine Blood SMALL H Ur Leukocyte Esterase TRACE H 06/12/18 18:34 Labs- Entire Visit 06/12/18 06/12/18 06/12/18 14:28 15:12 15:12 WBC 6.9 RBC 4.34 Hgb 13.8 Hct 40.0 MCV 92 MCH 31.9 MCHC 34.6 RDW 12.6 Plt Count 308 Seg Neutrophils % 65.2 Lymphocytes % 26.8 Monocytes % 5.7 Eosinophils % 1.4 Basophils % 0.9 Absolute Neutrophils 4.5 Absolute Lymphocytes 1.9 Absolute Monocytes 0.4 Absolute Eosinophils 0.1 Absolute Basophils 0.1 PT 12.8 INR 0.92 APTT 29.8 Sodium Potassium Chloride Carbon Dioxide Anion Gap BUN Creatinine Est GFR ( Amer) Est GFR (Non-Af Amer) Glucose Calcium Total Bilirubin Direct Bilirubin Neonat Total Bilirubin Neonat Direct Bilirubin Neonat Indirect Bili AST ALT Alkaline Phosphatase Total Protein Albumin Urine Color Urine Appearance Urine pH Ur Specific Ortley Urine Protein Urine Glucose (UA) Urine Ketones Urine Blood Urine Nitrite Urine Bilirubin Urine Urobilinogen Ur Leukocyte Esterase Urine WBC (Auto) Urine RBC (Auto) U Hyaline Cast (Auto) Squamous Epi Cells Auto Calcium Oxalate Cr Auto Urine Mucus (Auto) Urine Ascorbic Acid Urine HCG, Qual Bacteria (Wet Prep) Trichomonas (Wet Prep) Vaginal WBC Vaginal RBC Vaginal Yeast Blood Type A NEGATIVE Antibody Screen NEGATIVE 06/12/18 06/12/18 06/12/18 15:12 15:12 15:16 WBC RBC Hgb Hct MCV MCH MCHC RDW Plt Count Seg Neutrophils % Lymphocytes % Monocytes % Eosinophils % Basophils % Absolute Neutrophils Absolute Lymphocytes Absolute Monocytes Absolute Eosinophils Absolute Basophils PT INR APTT Sodium 143.1 Potassium 4.0 Chloride 103 Carbon Dioxide 28 Anion Gap 12 BUN 9 Creatinine 0.65 Est GFR ( Amer) > 60 Est GFR (Non-Af Amer) > 60 Glucose 85 Calcium 9.7 Total Bilirubin 0.5 Direct Bilirubin 0.2 Neonat Total Bilirubin Not Reportable Neonat Direct Bilirubin Not Reportable Neonat Indirect Bili Not Reportable AST 15 ALT 16 Alkaline Phosphatase 67 Total Protein 7.1 Albumin 4.4 Urine Color YELLOW Urine Appearance SLIGHTLY-CLOUDY Urine pH 6.0 Ur Specific Ortley 1.023 Urine Protein NEGATIVE Urine Glucose (UA) NEGATIVE Urine Ketones NEGATIVE Urine Blood SMALL H Urine Nitrite NEGATIVE Urine Bilirubin NEGATIVE Urine Urobilinogen NEGATIVE Ur Leukocyte Esterase TRACE H Urine WBC (Auto) 1 Urine RBC (Auto) 5 U Hyaline Cast (Auto) 1 Squamous Epi Cells Auto 1 Calcium Oxalate Cr Auto TOO NUMEROUS TO CNT Urine Mucus (Auto) OCC Urine Ascorbic Acid NEGATIVE Urine HCG, Qual NEGATIVE Bacteria (Wet Prep) Trichomonas (Wet Prep) Vaginal WBC Vaginal RBC Vaginal Yeast Blood Type Cancelled Antibody Screen Cancelled 06/12/18 16:53 WBC RBC Hgb Hct MCV MCH MCHC RDW Plt Count Seg Neutrophils % Lymphocytes % Monocytes % Eosinophils % Basophils % Absolute Neutrophils Absolute Lymphocytes Absolute Monocytes Absolute Eosinophils Absolute Basophils PT INR APTT Sodium Potassium Chloride Carbon Dioxide Anion Gap BUN Creatinine Est GFR ( Amer) Est GFR (Non-Af Amer) Glucose Calcium Total Bilirubin Direct Bilirubin Neonat Total Bilirubin Neonat Direct Bilirubin Neonat Indirect Bili AST ALT Alkaline Phosphatase Total Protein Albumin Urine Color Urine Appearance Urine pH Ur Specific Ortley Urine Protein Urine Glucose (UA) Urine Ketones Urine Blood Urine Nitrite Urine Bilirubin Urine Urobilinogen Ur Leukocyte Esterase Urine WBC (Auto) Urine RBC (Auto) U Hyaline Cast (Auto) Squamous Epi Cells Auto Calcium Oxalate Cr Auto Urine Mucus (Auto) Urine Ascorbic Acid Urine HCG, Qual Bacteria (Wet Prep) 3+ BACTERIA SEEN Trichomonas (Wet Prep) NO TRICHOMONAS SEEN Vaginal WBC FEW WBCS SEEN Vaginal RBC 2+ RBCS SEEN Vaginal Yeast NO YEAST SEEN Blood Type Antibody Screen - Diagnostic Test Radiology reviewed: Reports reviewed Discharge - Discharge Clinical Impression: Vagina bleeding Condition: Stable Disposition: HOME, SELF-CARE Instructions: Anti-Inflammatory Medication ([facility]), Vaginal Bleeding ([facility]) Additional Instructions: Return immediately for any new or worsening symptoms Followup with your primary care provider, call tomorrow to make a followup appointment Follow-up with a sole tier for further evaluation, call tomorrow for an appointment Prescriptions: Naproxen [Naprosyn 250 Nmg Tablet] 1 tab PO BID #14 tablet Forms: Special Work Note Referrals: PABLO MERA FNP-C [Primary Care Provider] - Follow up as needed [facility] [Provider Group] - Follow up tomorrow
[2018-06-12 17:08] LABS: BACTERIA (WET MOUNT) 3+ BACTERIA SEEN; RBCS (WET MOUNT) 2+ RBCS SEEN; T.VAGINALIS (WET MOUNT) NO TRICHOMONAS SEEN; WBCS (WET MOUNT) FEW WBCS SEEN; YEAST (WET MOUNT) NO YEAST SEEN
--- NOTE | 2018-06-12 18:31 | RADIOLOGY REPORT (SQ) ---
EXAM DESCRIPTION: U/S NON OB PEL TV W/DOPPLER COMPLETED DATE/TIME: 06/12/2018 6:15 pm REASON FOR STUDY: heavy vag bleeding COMPARISON: 05/31/2018 TECHNIQUE: Dynamic and static grayscale images acquired of the pelvis via transvaginal approach and recorded on PACS. Additional selected color Doppler and spectral images recorded. LIMITATIONS: None. FINDINGS: UTERUS: Contour normal. No mass. ENDOMETRIAL STRIPE: No focal or generalized thickening. No masses. CERVIX: No nabothian cysts. RIGHT OVARY AND DOPPLER: Normal size. No worrisome masses. Normal arterial vascular flow without evid ence for torsion. LEFT OVARY AND DOPPLER: Normal size. No worrisome masses. Normal arterial vascular flow without evide nce for torsion. FREE FLUID: None noted. OTHER: No other significant finding. MEASUREMENTS: UTERUS: 8.5 x 3.8 x 5.7 cm ENDOMETRIAL STRIPE: 8 mm RIGHT OVARY: 3.2 x 1.7 x 1.3 cm LEFT OVARY: 2.5 x 2.7 x 2.0 cm IMPRESSION: NORMAL TRANSVAGINAL PELVIC ULTRASOUND. TECHNICAL DOCUMENTATION: JOB ID: [id number] [employer]- All Rights Reserved Rev-11/26 Reading location - IP/workstation name: [email or web address]
[2018-06-12 18:49] LABS: CHLAM PCR NOT DETECTED (NOT DETECT); GON PCR NOT DETECTED (NOT DETECT)
[2018-06-12 18:58] VITALS: BP 111/68
== END 2018-06-12 18:58 | disposition home or self-care (01) ==
LOC: ER 14:19
DX: N93.8 Other specified abnormal uterine and vaginal bleeding (principal); R10.2 Pelvic and perineal pain
CPT/HCPCS: 99284; 96360; 86900; 86901; 36415; 87086; 87210; 86850; 85025; 85610; 85730; 81025; 80053; 81001; 87491; 87591; 76830; 93976; J7030

== ENCOUNTER → 2018-10-21 | Outpatient (CLI) | payer MEDICAID, OTHER ==
--- NOTE | 2018-10-21 09:01 | RADIOLOGY REPORT (SQ) ---
EXAM DESCRIPTION: CT HEAD WITHOUT COMPLETED DATE/TIME: 10/21/2018 8:50 am REASON FOR STUDY: HEADACHE G44.201 TENSION-TYPE HEADACHE, UNSPECIFIED, INTRACTABLE COMPARISON: None. TECHNIQUE: Axial images acquired through the brain without intravenous contrast. Images reviewed wi th bone, brain and subdural windows. Additional sagittal and coronal reconstructions were generated. Images stored on PACS. All CT scanners at this facility use dose modulation, iterative reconstruction, and/or weight based d osing when appropriate to reduce radiation dose to as low as reasonably achievable (ALARA). [facility]: Dose Right [facility]: CareDose [facility]: Dose Right [facility]: Teradose 4D [facility]: Synovex RADIATION DOSE: CT Rad equipment meets quality standard of care and radiation dose reduction techniq ues were employed. CTDIvol: 48.6 mGy. DLP: 953 mGy-cm. mGy. LIMITATIONS: None. FINDINGS: VENTRICLES: Normal size and contour. CEREBRUM: No masses. No hemorrhage. No midline shift. No evidence for acute infarction. Normal gra y/white matter differentiation. No areas of low density in the white matter. CEREBELLUM: No masses. No hemorrhage. No alteration of density. No evidence for acute infarction. EXTRAAXIAL SPACES: No fluid collections. No masses. ORBITS AND GLOBE: No intra- or extraconal masses. Normal contour of globe without masses. CALVARIUM: No fracture. PARANASAL SINUSES: No fluid or mucosal thickening. SOFT TISSUES: No mass or hematoma. OTHER: No other significant finding. IMPRESSION: NORMAL BRAIN CT WITHOUT CONTRAST. EVIDENCE OF ACUTE STROKE: NO. COMMENT: Quality ID # [id number]: Final reports with documentation of one or more dose reduction techniques (e.g., Automated exposure control, adjustment of the mA and/or kV according to patient size, use of iterative reconstruction technique) TECHNICAL DOCUMENTATION: JOB ID: [id number] [employer]- All Rights Reserved Reading location - IP/workstation name: [email or web address]
== END ==
LOC: RAD 08:33
PROVIDERS: ATTEND Nurse Practitioner Family
DX: G44.201 Tension-type headache, unspecified, intractable (principal)
CPT/HCPCS: 70450

== ENCOUNTER 2019-01-16 07:22 | Day surgery (SDC) | payer OTHER ==
[2019-01-09 11:33] LABS: HEMATOCRIT 37.7 % (36.0-47.0); HEMOGLOBIN 12.6 g/dL (12.0-15.5); MEAN CORPUSCULAR HEMOGLOBIN 29.6 pg (27.0-33.4); MEAN CORPUSCULAR HGB CONC 33.4 g/dL (32.0-36.0); MEAN CORPUSCULAR VOLUME 89 fl (80-97); PLATELET COUNT 260 10^3/uL (150-450); RED BLOOD COUNT 4.26 10^6/uL (3.72-5.28); RED CELL DISTRIBUTION WIDTH 12.8 % (11.5-14.0); WHITE BLOOD COUNT 6.6 10^3/uL (4.0-10.5)
[2019-01-09 11:52] LABS: APPEARANCE,URINE CLEAR; BILIRUBIN,URINE NEGATIVE (NEGATIVE); COLOR,URINE YELLOW; GLUCOSE, URINE NEGATIVE (NEGATIVE); KETONES,URINE NEGATIVE (NEGATIVE); LEUKOCYTE ESTERASE,URINE NEGATIVE (NEGATIVE); NITRITE,URINE NEGATIVE (NEGATIVE); PROTEIN,URINE NEGATIVE (NEGATIVE); URINE SPECIFIC GRAVITY 1.015; UROBILINOGEN,URINE NEGATIVE mg/dL (<2.0)
[2019-01-09 12:01] LABS: ALANINE AMINOTRANSFERASE 18 U/L (9-52); ALBUMIN 4.3 g/dL (3.5-5.0); ALKALINE PHOSPHATASE 75 U/L (38-126); ANION GAP 9 (5-19); ASPARTATE AMINO TRANSFERASE 16 U/L (14-36); BILIRUBIN,DIRECT 0.2 mg/dL (0.0-0.4); BILIRUBIN,TOTAL 0.4 mg/dL (0.2-1.3); BLOOD UREA NITROGEN 6 mg/dL (7-20); CALCIUM 9.4 mg/dL (8.4-10.2); CARBON DIOXIDE 26 mmol/L (22-30); CHLORIDE 105 mmol/L (98-107); GLUCOSE 88 mg/dL (75-110); POTASSIUM 4.2 mmol/L (3.6-5.0); TOTAL PROTEIN 6.9 g/dL (6.3-8.2)
[~2019-01-16 07:22] MED LIST: CEFAZOLIN 1 GM/D5W RTU 1 GM/50 ML RTUPB IV PRN; LACTATED RINGERS 1000 ML IV PRN; LIDOCAINE 0.5% INJ-PF (5 MG/ML) 50 ML SDV SUBCUT PRN
[2019-01-16] MEDS ORDERED: CEFAZOLIN 1 GM/D5W RTU 1 GM/50 ML RTUPB IV ONE (08:28)
[2019-01-16] MEDS ORDERED: BUPIVACAINE HCL 0.5 % INJ/PF 30 ML SDV ONE (08:42)
[2019-01-16] MEDS ORDERED: MIDAZOLAM 2 MG/2 ML INJ ONE ×2 (08:45→09:27)
[2019-01-16] MEDS ORDERED: KETOROLAC TROMETHAMINE 60 MG/2 ML SDV ONE (09:27)
[2019-01-16] MEDS ORDERED: LIDOCAINE 2% INJ-PF (100 MG/5 ML) SYRINGE ONE (09:27)
[2019-01-16] MEDS ORDERED: ONDANSETRON HCL INJ/PF 4 MG/2 ML SDV ONE (09:27)
[2019-01-16] MEDS ORDERED: DEXAMETHASONE SOD PHOSPHATE INJ 4 MG/1 ML VIAL ONE (09:27)
[2019-01-16] MEDS ORDERED: FENTANYL CITRATE INJ/PF 250 MCG/5 ML AMPULE ONE (09:27)
[2019-01-16] MEDS ORDERED: PROPOFOL INJ 200 MG/20 ML VIAL IV ONE (09:28)
[2019-01-16] MEDS ORDERED: SUGAMMADEX SODIUM 200 MG/2 ML SDV IV ONE (09:28)
[2019-01-16] MEDS ORDERED: FENTANYL CITRATE INJ/PF 100 MCG/2 ML AMPUL IV PRN ×2 (10:28)
[2019-01-16] MEDS ORDERED: MORPHINE SULFATE 10 MG/ML INJ IV PRN (10:28)
[2019-01-16] MEDS ORDERED: MEPERIDINE HCL/PF INJ 25 MG/1 ML DISP.SYRIN IV PRN (10:28)
[2019-01-16] MEDS ORDERED: PROMETHAZINE HCL INJ 25 MG/1 ML VIAL IV PRN (10:28)
[2019-01-16] MEDS ORDERED: DIPHENHYDRAMINE HCL 50 MG/ML VIAL IV PRN (10:28)
[2019-01-16] MEDS ORDERED: SUCCINYLCHOLINE CHLORIDE INJ 200 MG/10 ML VIAL ONE (10:52)
[2019-01-16] MEDS ORDERED: ROCURONIUM BROMIDE INJ 50 MG/5 ML VIAL IV ONE (10:52)
[2019-01-16] MEDS: FENTANYL CITRATE INJ/PF 100 MCG/2 ML AMPUL ONE ×2 (11:03→11:08)
[2019-01-16] MEDS ORDERED: LORAZEPAM INJ 2 MG/1 ML VIAL ONE (11:18)
--- NOTE | 2019-01-16 11:20 | OPERATIVE REPORT E ---
Operative Report NAME: JACQUES EGAN : 1995 AGE: 23Y DATE OF SURGERY: 01/16/2019 ROOM: PREOPERATIVE DIAGNOSIS: SEVERE DYSMENORRHEA. POSTOPERATIVE DIAGNOSIS: SEVERE DYSMENORRHEA PLUS SUSPECTED ADENOMYOSIS AND ENDOMETRIOSIS. OPERATION: LAVH and bilateral salpingectomy. SURGEON: Mateo SANCHEZ M.D. ESTIMATED BLOOD LOSS: Less than 100 mL TISSUE REMOVED: Uterus and tubes. ANESTHESIA: General. PROCEDURE: The patient was placed in a dorsal position, prepped and draped in normal sterile fashion. A speculum was placed and the cervix was visualized and grasped with a single-tooth tenaculum. A Hulka tenaculum was placed. Single-tooth tenaculum was removed. Speculum was removed. Attention was turned to the abdomen, where a subumbilical incision was made. Trocar was introduced for insufflation of the abdomen for insertion of laparoscope. There was apparently scarring along the left uterosacral ligament. No overt endometriosis was noted. There was scarring noted. The second puncture was made above the symphysis and a 5 was introduced and a third lateral to the umbilicus on the left and a 5 was introduced. Using Harmonic scalpel, on the left the mesosalpinx was divided using Harmonic. This was continued down through the utero-ovarian ligament and around down to the ascending branch of the uterine artery on the left. The procedure repeated on right. Bladder flap was created with sharp dissection. Abdomen deflated and the instruments were removed and attention turned to the pelvis where the single tooth tenaculum was removed. A second was placed a Cervix was grasped with a Jayson thyroid clamp. Posterior cul-de-sac was entered with sharp dissection. Posterior parietal peritoneum suture placed to the uterine cuff with 2-0 Vicryl, left uterosacral was clamped, divided and sutured with 2-0 Vicryl. Repeated on the right. Cervix was sharply circumscribed. The anterior parietal peritoneum was entered with sharp dissection. Serial clamps were used to sound the uterus, each pedicle being clamped, divided, and sutures, this continued to the level where the above incisions were encountered. The uterus and tubes were removed. The pedicles were inspected. Hemostasis was noted. The cuff was closed with interrupted sutures of 2-0 Vicryl. Attention was turned back to the pelvis which was reinflated and the pelvis was irrigated with normal saline and hemostasis was noted. Abdomen deflated. Trocar sleeve was removed. The umbilical incision closed with 0-Vicryl for the fascia and 4-0 subcutaneous. The two punctures were closed with 4-0 subcutaneous and Dermabond was placed over the closures. The patient's urine remained clear throughout the procedure and she was taken to recovery room in good condition. DICTATING PHYSICIAN: Mateo SANCHEZ M.D. [id number] PHY#: [id number] ID: [id number] JOB#: [id number] ACCT: [id number] cc:Mateo SANCHEZ M.D. >
[2019-01-16] MEDS ORDERED: HYDROMORPHONE HCL INJ/PF 2 MG/ML AMPULE ONE (11:26)
[2019-01-16] MEDS ORDERED: ONDANSETRON HCL 8 MG TABLET PO PRN (11:45)
[2019-01-16] MEDS ORDERED: DIPHENHYDRAMINE HCL 50 MG/ML VIAL IV ONE (14:00)
[2019-01-16] MEDS: IBUPROFEN 800 MG TABLET PO SCH ×3 (14:56→18:38)
[2019-01-16] MEDS: OXYCODONE-ACETAMINOPHEN 5-325 MG TABLET PO PRN ×2 (14:58→18:52)
[2019-01-16 19:56] VITALS: BP 131/81
== END 2019-01-16 21:07 | disposition home or self-care (01) ==
LOC: OROUT 07:22 → 2N 12:00 → OROUT 21:07
PROVIDERS: ATTEND Obstetrics & Gynecology Gynecology
DX: N94.4 Primary dysmenorrhea (principal); G43.909 Migraine, unspecified, not intractable, without status migrainosus; Z79.899 Other long term (current) drug therapy
CPT/HCPCS: 86900; 86901; 36415 ×2; 86850; 85027; 81025; 80053; 81001; 88307 ×2; 00840; 58552; J2250; J3490 ×3; J0690; J1100; J1200; J1885; J3010 ×2; J2001; J1170; S0119; J2060; J0330; J2405; J2704; 840

== ENCOUNTER → 2019-05-18 | Outpatient (CLI) | payer OTHER ==
--- NOTE | 2019-05-18 11:01 | RADIOLOGY REPORT (SQ) ---
EXAM DESCRIPTION: CT HEAD WITHOUT COMPLETED DATE/TIME: 05/18/2019 10:39 am REASON FOR STUDY: S09.90XA UNSPECIFIED INJURY OF HEAD, INITIAL ENCOUNTER S09.90XA UNSPECIFIED INJUR Y OF HEAD, INITIAL ENCOUNTER COMPARISON: None. TECHNIQUE: Axial images acquired through the brain without intravenous contrast. Images reviewed wi th bone, brain and subdural windows. Additional sagittal and coronal reconstructions were generated. Images stored on PACS. All CT scanners at this facility use dose modulation, iterative reconstruction, and/or weight based d osing when appropriate to reduce radiation dose to as low as reasonably achievable (ALARA). [facility]: Dose Right [facility]: CareDose [facility]: Dose Right [facility]: Teradose 4D [facility]: Graze RADIATION DOSE: CT Rad equipment meets quality standard of care and radiation dose reduction techniq ues were employed. CTDIvol: 48.6 mGy. DLP: 880 mGy-cm. mGy. LIMITATIONS: None. FINDINGS: VENTRICLES: Normal size and contour. CEREBRUM: No masses. No hemorrhage. No midline shift. No evidence for acute infarction. Normal gra y/white matter differentiation. No areas of low density in the white matter. CEREBELLUM: No masses. No hemorrhage. No alteration of density. No evidence for acute infarction. EXTRAAXIAL SPACES: No fluid collections. No masses. ORBITS AND GLOBE: No intra- or extraconal masses. Normal contour of globe without masses. CALVARIUM: No fracture. PARANASAL SINUSES: No fluid or mucosal thickening. SOFT TISSUES: No mass or hematoma. OTHER: No other significant finding. IMPRESSION: NORMAL BRAIN CT WITHOUT CONTRAST. EVIDENCE OF ACUTE STROKE: NO. COMMENT: Quality ID # [id number]: Final reports with documentation of one or more dose reduction techniques (e.g., Automated exposure control, adjustment of the mA and/or kV according to patient size, use of iterative reconstruction technique) TECHNICAL DOCUMENTATION: JOB ID: [id number] [employer]- All Rights Reserved Reading location - IP/workstation name: [email or web address]
== END ==
LOC: RAD 10:17
PROVIDERS: ATTEND Nurse Practitioner Family
DX: S09.90XA Unspecified injury of head, initial encounter (principal); W10.9XXA Fall (on) (from) unspecified stairs and steps, initial encounter
CPT/HCPCS: 70450